=== PATIENT | male | born 1945 | race Caucasian/White ===

== ENCOUNTER 2016-08-01 08:53 | Emergency (ER) | payer MEDICARE ==
--- NOTE | 2016-08-01 10:43 | ED ORDER SUMMARY ---
..... Patient: TRAVIS STACY OrderSheet [facility] VisitID: [id number] [place] [address] 70y, M Registration Date/Time: 08/01/2016 ORDER SHEET Weight: 71.6 kg (stated) Allergies: No Known Drug Allergy GENERAL ORDERS: UA-Culture if indicated Urgent (09:12 08/01/2016 PHutchinson DO) (Ack 9:14 RKaruga) (10:14 KWilliams R.N.) Amylase Urgent (09:12 08/01/2016 PHutchinson DO) (Ack 9:14 RKaruga) (9:14 MWinterer R.N.) Lipase Urgent (09:08/01/2016 PHutchinson DO) (Ack 9:14 RKaruga) (9:14 MWinterer R.N.) PT with INR Urgent (09:12 08/01/2016 PHutchinson DO) (Ack 9:14 RKaruga) (9:14 MWinterer R.N.) Cardiac Panel Stat (09:12 08/01/2016 PHutchinson DO) (Ack 9:14 RKaruga) (9:14 MWinterer R.N.) NPO (09:12 08/01/2016 PHutchinson DO) (9:14 MWinterer R.N.) CT Abd/Pel w Cont (Yes) (N/A) Urgent (09:17 08/01/2016 PHutchinson DO) (Ack 9:28 RKaruga) (10:00 MWinterer R.N.) (Cancelled: Other11:32 PHutchinson DO) Urine Drug Screen Urgent (09:23 08/01/2016 PHutchinson DO) (Ack 9:27 RKaruga) (10:14 KWilliams R.N.) CT Abd/Pel wo Cont Urgent (11:32 08/01/2016 PHutchinson DO) (11:32 PHutchinson DO) (Cancelled: Other11:32 PHutchinson DO) CT Abd/Pel w Cont (Yes) (N/A) (already done) Urgent (11:33 08/01/2016 PHutchinson DO) (11:33 LTapper) MEDICATION ORDERS: IV FLUIDS: IV NS : initial bolus 500 mL (1000 mL/hr), then 250 mL/hr for X2 (NOW) (09:11 08/01/2016 [facility]) (Ack 9:14 MWinterer R.N.) (9:24 KWilliams R.N.) Zofran IV 4 mg (NOW) (09:12 08/01/2016 [facility]) (Ack 9:14 MWinterer R.N.) (9:32 MWinterer R.N.) Protonix IVP 40mg 40 mg (Mix in NS 10ml over 2min) (09:12 08/01/2016 [facility]) (Ack 9:14 MWinterer R.N.) (9:33 MWinterer R.N.) Dilaudid IV 1 mg (HIGH ALERT MEDICATION, NOW) (09:16 08/01/2016 [facility]) (9:33 MWinterer R.N.) Reglan IV 10 mg (NOW) (09:16 08/01/2016 [facility]) (9:32 MWinterer R.N.) Magnesium Sulfate IV 2 gm/50mL (NOW) (09:38 08/01/2016 [facility]) (Ack 9:40 MWinterer R.N.) (10:08 MWinterer R.N.) Dilaudid IV 0.5 mg (NOW) (11:10 08/01/2016 [facility]) (Ack 11:13 MWinterer R.N.) (11:26 MWinterer R.N.) ORDER SHEET NOTES: [Electronically signed by Jenny Finn R.N. (14:49 08/01/2016)] [Electronically signed by Maurizio Valadez DO (16:05 08/01/2016)] [Electronically locked/signed by Jenny Finn R.N. (14:49 08/01/2016)]
--- NOTE | 2016-08-01 10:43 | ED NURSING NOTES ---
Clinical Report - Nurses [facility] [address] [place] [address] 08/01/2016 8:55 Patient: TRAVIS STACY TRIAGE Acuity: LEVEL 3. Chief Complaint: ABDOMINAL PAIN and VOMITING. Alert. No acute distress. SEPSIS SCREEN: Sepsis Screen. Negative (no infection suspected/documented). --09: Jenny Finn R.N. 09:04 08/01/16. BP: 160/80. HR: 65. RR: 16. O2 saturation: 95%. Temp: 97.5 F (oral). Pain level now: 04/13. --09: Jenny Finn R.N. Weight: 71.6 kg stated. Height/Length: 71 inches Per Patient. BMI: 22. --09: Jenny Finn R.N. Medications Oxycodone-Acetaminophen Oral. --09: Jenny Finn R.N. Aspirin Childrens Oral. BuPROPion HBr Oral 75 MG, TID. BusPIRone HCl Oral 15 mg, 3x a day. Fish Oil Oral. Humira Subcutaneous (Kit 40 mg/0.8mL), 10 DAYS. KCL 10 meq, daily. Multivitamin Oral. Omeprazole Oral 20 mg, daily. Plaquenil Oral 200 mg. Pravastatin Sodium Oral 20 mg, daily. --09: Jenny Finn R.N. Vitamin c Oral. --09: Jenny Finn R.N. Medication/allergy information source: the patient. --09: Jenny Finn R.N. Allergies No Known Drug Allergy. --09: Jenny Finn R.N. History Arrived by private vehicle. Historian: patient. Accompanied by daughter. Primary physician (Antunez). Onset. (5 hours ago). Relates location as generalized across abdomen. Reports last BM was yesterday. Last oral intake by patient was this morning. Treatment [employer]: (oxydocone). SOCIAL HX: Current every day heavy tobacco smoker- 1 pack per day. Regular alcohol use. History of heavy drug use: marijuana. FALL RISK ASSESSMENT: Fall risk assessment completed. No fall risk identified. NUTRITIONAL RISK ASSESSMENT: The nutritional risk assessment revealed no deficiencies. FUNCTIONAL ASSESSMENT: Functional assessment: no impairments noted. LEARNING NEEDS ASSESSMENT: The learning needs assessment revealed no barriers. SKIN INTEGRITY ASSESSMENT: Skin integrity risk assessment completed. No skin integrity risk identified. --09: Jenny Finn R.N. PROBLEMS: Myofascial Strain. Hypokalemia. Gastroenteritis. Anxiety Reaction. Rheumatoid Arthritis. --09:06 Jenny Finn R.N. ADDITIONAL SURGERIES: The following entry was struck by Maurizio Valadez DO, 10:42 Reason - Struck from template <<STRICKEN ENTRY-- Hernia Repair. --10:42 Maurizio Valadez DO --END STRIKE>>. Assessment GENERAL / NEURO / PSYCH: Alert. Oriented X 4. Appears in no acute distress. Jazmine Coma Scale: 15- eyes open spontaneously (4); best verbal response- oriented x 4 (5); best motor response- obeys commands (6). Patient appears calm and cooperative. RESPIRATORY: Respirations not labored. CVS: Capillary refill less than 2 seconds. SKIN: Mucous membranes are pink. Skin is warm and dry. --09: Jenny Finn R.N. Interventions ID band on patient. To treatment room. --09: Jenny Finn R.N. PHYSICAL ASSESSMENT 09:08/01/16. Ambulatory to room. GENERAL / NEURO / PSYCH: Alert. Oriented X 4. Appears in no acute distress. HEENT: Mucous membranes are pink. RESPIRATORY: Respirations not labored. CVS: Capillary refill less than 2 seconds. GI / : Abdomen soft. SKIN: Skin is pale. Skin is warm and dry. --09:10 Jenny Finn R.N. NURSING PROGRESS NOTES 09:08/01/2016 Site #1 started via IV in the right antecubital space with an 18g angiocath, with aseptic technique and good blood return; one attempt. Blood drawn: rainbow set. Labeled in the presence of the patient and sent to the lab. Saline lock flushed with 10 mL saline. --09:10 Jenny Finn R.N. 09:08/01/16. Patient gowned. Two patient identifiers checked. Call light placed in reach. Side rails up x 1. Bed placed in lowest position. Brakes of bed on. Patient ready for evaluation- chart flagged and ED physician notified. --09:10 Jenny Finn R.N. 09:19 08/01/2016 Started bag #1 1000 mL IV Fluids IV NS (Saline); bolus of 500 mL over 30 minute(s) then at 250 mL/hr over 2 hour(s) via site #1. Allergies verified and confirmed 5 rights. IV patency established. IV site checked: no pain, redness, or swelling. IV flushed thoroughly pre- and post-medication administration. Completed per protocol. --09:24 Sarahi Ley R.N. 09:27 08/01/2016 Zofran (Ondansetron HCl) IVP 4 mg given over 1 minute(s) via site #1. Allergies verified and confirmed 5 rights. IV patency established. IV site checked: no pain, redness, or swelling. IV flushed thoroughly pre- and post-medication administration. IVP given by RN. --09:32 Jenny Finn R.N. 09:27 08/01/2016 Reglan (Metoclopramide HCl) IVP 10 mg given over 1 minute(s) via site #1. Allergies verified and confirmed 5 rights. IV patency established. IV site checked: no pain, redness, or swelling. IV flushed thoroughly pre- and post-medication administration. IVP given by RN. --09:32 Jenny Finn R.N. 09:08/01/2016 Dilaudid (HYDROmorphone HCl PF) IVP 1 mg given over 2 minute(s) via site #1. Allergies verified, confirmed 5 rights and sedative warning given to the patient. IV patency established. IV site checked: no pain, redness, or swelling. IV flushed thoroughly pre- and post-medication administration. IVP given by RN. --09:33 Jenny Finn R.N. 09:33 08/01/2016 PROTONIX (Pantoprazole Sodium) IVP 40 mg given over 3 minute(s) via site #1. Allergies verified and confirmed 5 rights. IV patency established. IV site checked: no pain, redness, or swelling. IV flushed thoroughly pre- and post-medication administration. IVP given by RN. --09:33 Jenny Finn R.N. 10:08 08/01/2016 Magnesium Sulfate (Magnesium Sulfate in D5W) IVP 2 gm given over 2 hour(s) via site #1. Allergies verified and confirmed 5 rights. IV patency established. IV site checked: no pain, redness, or swelling. IV flushed thoroughly pre- and post-medication administration. IVP given by RN. --10:08 Jenny Finn R.N. 10:15. Patient ID band checked for patient name and birthdate: patient confirmed. Instructions provided to collect clean catch urine and patient verbalized understanding. Clean catch urine collected with return of yellow-colored clear urine; odor is normal; sample sent to lab for urinalysis and culture. Specimen labeled in the presence of the patient. --10:42 Herlinda Bautista 10:45 08/01/16. BP: 148/72. HR: 72. RR: 12. O2 saturation: 97% on nasal cannula at 2 liters/minute. --10:46 Jenny Finn R.N. 11:26 08/01/2016 Dilaudid (HYDROmorphone HCl PF) IVP 0.5 mg given over 1 minute(s) via site #1. Allergies verified, confirmed 5 rights and sedative warning given to the patient. IV patency established. IV site checked: no pain, redness, or swelling. IV flushed thoroughly pre- and post-medication administration. IVP given by RN. --11:26 Jenny Finn R.N. 11:32 08/01/16. BP: 144/84. HR: 71. RR: 16. O2 saturation: 97% on nasal cannula at 2 liters/minute. --11:32 Jenny Finn R.N. 12:15 08/01/2016 Site #1 removed upon discharge. Catheter intact. Manual pressure and bandage applied. --14:49 Jenny Finn R.N. 12:15 08/01/2016 IV Fluids IV NS Discontinued: bag #1 infused upon discharge. Total amount infused: 1000 mL. IV patency established. IV site checked: no pain, redness, or swelling. IV flushed thoroughly. --14:48 Jenny Finn R.N. DISPOSITION / DISCHARGE Disposition: observation in Acute Care. Transported via stretcher by [employer]. Report was given to a nurse via a phone call. Report included patient's care, treatment, medications, reviewed medication reconcilliation, and condition (including any recent changes or anticipated changes). All questions were answered. Report was acknowledged and care was transferred. (KAL Giron). Bed obtained and ready (203B). Patient's personal items include: shirt, pants, coat, socks, shoes, glasses and jewelry; items were placed in belongings bag and transported with the patient. --11:50 Jenny Finn R.N. 11:47 08/01/16. BP: 145/80. HR: 71. RR: 18. O2 saturation: 98% on nasal cannula at 2 liters/minute. --11:50 Jenny Finn R.N. 12:13 08/01/16. The patient left the Emergency Department against medical advice; patient was accompanied by a family member. The patient appears to be alert, oriented x4, coherent and in no acute distress. The patient stated is leaving the ED (pt did not want to be admitted to the hospital.). Notified the ED physician of patient departure. Prior to leaving the ED, he was advised to stay for completion of treatment. He was informed of the risks of leaving and verbalized understanding of these risks. Patient signed form prior to leaving. He left the Emergency Department ambulatory and via private vehicle. --12:13 Jenny Finn R.N. Locked/Released at 08/01/2016 14:50 by Jenny Finn R.N.
--- NOTE | 2016-08-01 10:43 | DIAGNOSTIC IMAGING REPORT ---
PROCEDURE: CT ABD/PELVIS WITH CONTRAST CLINICAL INDICATION: Epigastric pain, initial encounter TECHNIQUE: 125 ml of Isovue 300 were injected intravenously and axial images were obtained of the entire abdomen and pelvis with sagittal and coronal reformations. COMPARISON: CT abdomen/pelvis 06/19/2015 FINDINGS: ABDOMEN: Lung base are clear. Heart size is normal. Stable hepatic cysts, largest 1 cm. Gallbladder, pancreas, spleen, adrenal glands and kidneys are unremarkable. Mild atherosclerosis. There are several a dilated loops of small bowel with transition point in the mid pelvis. PELVIS: Normal appendix. Moderate sigmoid diverticulosis. No pelvic mass, inflammatory changes or free fluid. Moderate degenerative changes of the spine. IMPRESSION: 1. Moderately dilated small bowel with transition point in the mid pelvis. This may be due to enteritis or partial small bowel obstruction. 2. Moderate sigmoid diverticulosis 3. Results discussed with Dr. Valadez All CT scans at this facility use dose modulation, iterative reconstruction, and/or weight-based dosing when appropriate to reduce radiation dose to as low as reasonably achievable.
--- NOTE | 2016-08-01 10:43 | ED CLINICAL REPORT ---
Clinical Report - Physicians/Mid Levels [facility] [address] [address] 08/01/2016 8:55 Patient: TRAVIS STACY Time Seen: 09:04. Arrived- By private vehicle. Historian- patient. HISTORY OF PRESENT ILLNESS Chief Complaint: ABDOMINAL PAIN. It is described as "pain". No radiation. It is described as generalized in location and located in the periumbilical area. This started today about 5 hours ago and is still present. It was gradual in onset and has been waxing/waning. At its maximum, severity described as severe. When seen in the E.D., severity described as severe. Modifying factors- worsened by movement. Relieved by rest. The patient has had nausea. He has had vomiting. The vomiting has occurred only once. No bilious emesis, blood-tinged emesis or frankly bloody emesis. (Last oral intake by patient was this morning.). Similar symptoms previously: Once, milder. Recent medical care: Not recently seen/assessed. REVIEW OF SYSTEMS No constipation, black stools, hematemesis, difficulty with urination or pain with urination. No urinary frequency, bloody stools, fever, headache or sore throat. No chest pain, difficulty breathing, cough, joint pain or skin rash. Last bowel movement: yesterday. The patient has had back pain. It has been similar to previous symptoms. He has had neck pain. It has been similar to previous episodes. All systems otherwise negative, except as recorded above. PAST HISTORY Primary physician: Dr Antunez ([facility] / [facility]). Type II diabetes mellitus treated with insulin. Hyperlipidemia. Hiatal hernia. Gastroesophageal reflux. Rheumatoid arthritis. Anxiety. Depression. Surgeries: Inguinal hernia repair. Medications: Vitamin c Oral. Aspirin Childrens Oral. BuPROPion HBr Oral 75 MG, TID. BusPIRone HCl Oral 15 mg, 3x a day. Fish Oil Oral. Humira Subcutaneous (Kit 40 mg/0.8mL), 10 DAYS. KCL 10 meq, daily. Multivitamin Oral. Omeprazole Oral 20 mg, daily. Plaquenil Oral 200 mg. Pravastatin Sodium Oral 20 mg, daily. Oxycodone-Acetaminophen Oral. Allergies: No Known Drug Allergy. SOCIAL HISTORY Smoker- current status unknown. Regular alcohol use. History of drug use: marijuana. FAMILY HISTORY Stroke in first-degree relative; cancer in first-degree relative. Father with RA. ADDITIONAL NOTES The nursing notes have been reviewed. PHYSICAL EXAM Vital Signs: 08/01/2016 09:04 BP: 160/80. HR: 65. RR: 16. O2 saturation: 95%. Temp: 97.5 F. Pain level now: 04/13. Appearance: Alert. Oriented X3. Patient in mild distress. Eyes: Eyes normal inspection. No scleral icterus or pale conjunctivae. ENT: Pharynx normal. No pharyngeal erythema or tonsillar exudate. The mucous membranes are not dry. Neck: Normal inspection. Neck supple. CVS: Normal heart rate and rhythm. Heart sounds normal. Pulses normal. Respiratory: No respiratory distress. Breath sounds normal. Abdomen: Soft. Moderate tenderness diffusely. No mass. Distention with tenderness to palpation. No rebound tenderness or guarding. Back: Normal inspection. No CVA tenderness. Skin: No cyanosis. Skin warm and dry. No pallor. Normal skin color. Normal skin turgor. Skin not cool on palpation. No diaphoresis. Extremities: Extremities exhibit normal ROM. No lower extremity edema. (hands with changes of rheumatoid arthritis / ulnar deviation at MCP joints and osteophytes). Neuro: Oriented X 3. No motor deficit. No sensory deficit. LABS, X-RAYS, AND EKG Abdominal CT: IMPRESSION: 1. Moderately dilated small bowel with transition point in the mid pelvis. This may be due to enteritis or partial small bowel obstruction. 2. Moderate sigmoid diverticulosis. Study type: abdomen and pelvis. Abdominal CT performed with IV contrast. The study was independently viewed by me, interpreted by the radiologist and discussed with the radiologist. Laboratory Tests: UA-Culture if indicated: (CONNIE: 08/01/2016 10:15) ( MsgRcvd 08/01/2016 10:24) IP Test Result Flag Units (Reference) URINE COLOR YELLOW URINE APPEARANCE CLEAR URINE GLUCOSE NEGATIVE (NEGATIVE) URINE BILIRUBIN NEGATIVE (NEGATIVE) URINE KETONE 1+ (NEGATIVE) URINE SPECIFIC GRAVITY 1.010 (1.010-1.030) URINE PH 5.5 (5.0-8.0) URINE PROTEIN NEGATIVE (NEGATIVE) URINE UROBILINOGEN 0.2 EU/dL (0.2-1.0) URINE NITRITE NEGATIVE (NEGATIVE) URINE BLOOD NEGATIVE (NEGATIVE) URINE LEUK ESTERASE NEGATIVE (NEGATIVE) CBC w Diff: (CONNIE: 08/01/2016 09:08) ( [facility] 08/01/2016 09:21) Final results Test Result Flag Units (Reference) WHITE BLOOD COUNT 8.4 K/uL (4.5-11.5) RED BLOOD COUNT 4.76 M/uL (4.50-5.90) HEMOGLOBIN 16.2 gm/dL (13.5-17.5) HEMATOCRIT 47.4 % (41.0-53.0) MEAN CELL VOLUME 100 fL (80-100) MEAN CORPUSCULAR HGB 34 pg (26-34) MEAN CORPUSCULAR HGB CONC 34 g/dL (31-37) RED CELL DISTRIBUTION WIDTH 13.1 % (11.6-14.8) PLATELET COUNT 227 K/uL (150-400) NEUTROPHIL % 76.1 H % (50-75) LYMPH % 13.5 L % (25-40) MONO % 8.0 % (3-14) EOSINOPHIL % 2.1 % (0-4) BASOPHIL % 0.3 % (0-2) PT with INR: (CONNIE: 08/01/2016 09:08) ( [facility] 08/01/2016 09:41) Final results Test Result Flag Units (Reference) INR 0.9 (0.8-1.2) Low Intensity Therapy: INR 1.5-2.0 PT range 18.5-23.1Mod.Intensity Therapy: INR 2.0-3.0 PT range 23.1-31.5High Intensity Therapy: INR 2.5-3.5 PT range 27.4-35.5High Intensity Therapy 2: INR 3.0-4.0 PT range 31.5-39.3 Urine Drug Screen: (CONNIE: 08/01/2016 10:15) ( [facility] 08/01/2016 10:51) Final results Test Result Flag Units (Reference) AMPHETAMINE/METHAMPHETAMINE NEGATIVE (NEGATIVE) BARBITURATE NEGATIVE (NEGATIVE) BENZODIAZEPINE NEGATIVE (NEGATIVE) CANNABINOID POSITIVE H (NEGATIVE) COCAINE NEGATIVE (NEGATIVE) ECSTASY POSITIVE H (NEGATIVE) METHADONE NEGATIVE (NEGATIVE) OPIATE POSITIVE H (NEGATIVE) The urine drug screen is a qualitative screening test fordrug overdose and abuse. All screen results should beconsidered as presumptive.Drugs screened for are as follows:BenzodiazepinesCocaineAmphetamines/MetamphetaminesTHC (Tetrahydrocannabinol)OpiatesBarbituratesEcstasyMethadonePositive results are unconfirmed. For confirmation, notifythe lab for the specimen to be sent to the reference lab.All confirmations must be performed by a differentmethodology.The ingestion of natural herbal and plant productscontaining Ephedra/Ephedra metabolites can produce in urineone or more substances capable of cross reacting withamphetamine/methamphetamine immunoassays. These testsprovide a preliminary result only. A more specificalternative chemical method must be used to obtain aconfirmed analytical result. CHEM 13 PANEL: (CONNIE: 08/01/2016 09:08) ( MsgRcvd 08/01/2016 09:33) Final results Test Result Flag Units (Reference) GLUCOSE 112 H mg/dL (70-110) BUN 14 mg/dL (7-18) CREATININE 0.9 mg/dL (0.6-1.3) Estimated GFR >60 mL/min Estimated GFR- >60 mL/min Note: Persistent reduction over 3 months in eGFR<60 mL/min/1.73 m2 defines CKD. Patients with eGFR values>=60 mL/min/1.73 m2 may also have CKD if evidence ofpersistent proteinuria. Additional information may be foundat www.kidney.org. SODIUM 143 mmol/L (136-145) POTASSIUM 3.4 L mmol/L (3.5-5.1) CHLORIDE 102 mmol/L (98-107) CARBON DIOXIDE 31 mmol/L (21-32) CALCIUM 9.4 mg/dL (8.5-10.1) TOTAL PROTEIN 8.4 H g/dL (6.4-8.2) ALBUMIN 4.2 g/dL (3.3-5.0) BILIRUBIN, TOTAL 0.7 mg/dL (0.0-1.0) ALKALINE PHOSPHATASE 77 U/L (46-116) AST (SGOT) 29 U/L (15-37) ALT (SGPT) 34 U/L (12-78) MAGNESIUM 1.5 L mg/dL (1.8-2.4) LIPASE 114 U/L (73-393) AMYLASE 39 U/L (25-115) CPK 86 U/L (24-260) TROPONIN I <0.05 ng/mL (0.00-1.5) TROPONIN REFERENCE RANGE:<0.1 NEGATIVE0.1-1.5 INDETERMINANT>1.5 POSITIVE . Pulse Oximetry: 08/01/2016 09:04 O2 saturation: 95%. (FIO2 - room air). Interpretation: normal. PROGRESS AND PROCEDURES Course of Care: Normal Saline 1 liter IVPB given. Zofran 4 mg IVP given. Protonix 40 mg IVP given. Reglan 10 mg IVP given. Mag Sulfate 2 gm IVP given. Dilaudid 1 mg + 0.5 mg IVP given. 08/01/2016 10:45 BP: 148/72. HR: 72. RR: 12. O2 saturation: 97%. 11:11 08/01/16. Patient is stable. Physical exam findings are improved. Symptoms better. 12:03 08/01/16. After long discussion with pt and daughter, pt is demanding to leave AMA. I have offered to help with every issue he has regarding his reasons for leaving - birds at home, ect - but he refuses this offer of help. Discussed case with patient's primary care provider, (Alba). Reviewed test results. Agreed upon treatment plan. Discussed case with hospitalist, (Jyoti call returned 11:00). Reviewed test results. Agreed upon treatment plan. Health care provider will see patient in hospital. Patient/family counseled. Old ED records reviewed. (PDMP with #90 oxycodone 5mg on 07/10/2016). Observation orders written. Disposition: Discharged. Condition: stable, guarded and improved. CLINICAL IMPRESSION Vomiting with nausea. Not intractable. Early, partial small bowel obstruction associated with intestinal bands / adhesions. Essential hypertension. Hypokalemia. Moderate hypomagnesemia. INSTRUCTIONS Drink plenty of fluids. (MANDATORY RECHECK TOMORROW). Warnings: Further evaluation is necessary. It is very important to follow up with a physician. SEDATIVE MEDICATION: You were given sedative medication during your visit. Do not drive or operate dangerous machinery. CONTROLLED SUBSTANCE WARNINGS. GENERAL WARNINGS: Return or contact your physician immediately if your condition worsens or changes unexpectedly, if not improving as expected, or if other problems arise. Prescription Medications: Zofran (orally disintegrating tablets) 4 mg: take 1-2 orally every 8 hours as needed for nausea and vomiting. Dispense five (5). No refill. Substitution is permissible. Follow-up: Follow up with your doctor tomorrow. Screening today revealed the patient's blood pressure to be in the hypertensive range. The patient should follow up with a primary care provider for blood pressure management. The patient was admitted and blood pressure will be managed during the admission. AMA warnings: Oriented to person, place, and time. Gives appropriate answers and rational explanation of refusal of care. No indication for involuntary commitment is present, signs of psychosis, auditory hallucinations, delusional thinking or suicidal ideations. No slurred speech, tangential thinking, visual hallucinations or homicidal ideations. Speaks coherently. Abstract thinking intact. Clinical Impression: the patient has the capacity to make decisions regarding the medical care offered. Relevant issues reviewed and discussed with the patient and family. The suspected diagnosis, based upon the initiated medical screening exam, is Small bowel obstruction and has been discussed with the patient and family. Acknowledges understanding of the reasons for recommendations regarding medical treatment, medical tests, procedures, admission to facility and further observation. The recommended medical care being refused is Hospital admission and has been discussed with the patient and family. The risks of refusing recommended care that were disclosed are and permanent mental impairment. REFUSAL OF CARE STATEMENT (patient to review and sign in discharge instructions): I have read this paragraph. I understand that a doctor at this hospital wants to give me certain medical care. The doctor explained that care to me, and I understand what that care is. The doctor also explained to me what could happen to me if I leave here without having that care, and I understand what he said. I know that I am welcome to return to this hospital at any time to receive the recommended care or any other care that I may need at any time, regardless of my ability to pay for such care. (Electronically signed by Maurizio Valadez DO 08/01/2016 16:05)
--- NOTE | 2016-08-01 10:43 | ED ORDER SUMMARY ---
..... Patient: TRAVIS STACY OrderSheet [facility] VisitID: [id number] [place] [address] 70y, M Registration Date/Time: 08/01/2016 ORDER SHEET Weight: 71.6 kg (stated) Allergies: No Known Drug Allergy GENERAL ORDERS: UA-Culture if indicated Urgent (09:12 08/01/2016 PHutchinson DO) (Ack 9:14 RKaruga) (10:14 KWilliams R.N.) Amylase Urgent (09:12 08/01/2016 PHutchinson DO) (Ack 9:14 RKaruga) (9:14 MWinterer R.N.) Lipase Urgent (09:08/01/2016 PHutchinson DO) (Ack 9:14 RKaruga) (9:14 MWinterer R.N.) PT with INR Urgent (09:12 08/01/2016 PHutchinson DO) (Ack 9:14 RKaruga) (9:14 MWinterer R.N.) Cardiac Panel Stat (09:12 08/01/2016 PHutchinson DO) (Ack 9:14 RKaruga) (9:14 MWinterer R.N.) NPO (09:12 08/01/2016 PHutchinson DO) (9:14 MWinterer R.N.) CT Abd/Pel w Cont (Yes) (N/A) Urgent (09:17 08/01/2016 PHutchinson DO) (Ack 9:28 RKaruga) (10:00 MWinterer R.N.) (Cancelled: Other11:32 PHutchinson DO) Urine Drug Screen Urgent (09:23 08/01/2016 PHutchinson DO) (Ack 9:27 RKaruga) (10:14 KWilliams R.N.) CT Abd/Pel wo Cont Urgent (11:32 08/01/2016 PHutchinson DO) (11:32 PHutchinson DO) (Cancelled: Other11:32 PHutchinson DO) CT Abd/Pel w Cont (Yes) (N/A) (already done) Urgent (11:33 08/01/2016 PHutchinson DO) (11:33 LTapper) MEDICATION ORDERS: IV FLUIDS: IV NS : initial bolus 500 mL (1000 mL/hr), then 250 mL/hr for X2 (NOW) (09:11 08/01/2016 [facility]) (Ack 9:14 MWinterer R.N.) (9:24 KWilliams R.N.) Zofran IV 4 mg (NOW) (09:12 08/01/2016 [facility]) (Ack 9:14 MWinterer R.N.) (9:32 MWinterer R.N.) Protonix IVP 40mg 40 mg (Mix in NS 10ml over 2min) (09:12 08/01/2016 [facility]) (Ack 9:14 MWinterer R.N.) (9:33 MWinterer R.N.) Dilaudid IV 1 mg (HIGH ALERT MEDICATION, NOW) (09:16 08/01/2016 [facility]) (9:33 MWinterer R.N.) Reglan IV 10 mg (NOW) (09:16 08/01/2016 [facility]) (9:32 MWinterer R.N.) Magnesium Sulfate IV 2 gm/50mL (NOW) (09:38 08/01/2016 [facility]) (Ack 9:40 MWinterer R.N.) (10:08 MWinterer R.N.) Dilaudid IV 0.5 mg (NOW) (11:10 08/01/2016 [facility]) (Ack 11:13 MWinterer R.N.) (11:26 MWinterer R.N.) ORDER SHEET NOTES: [Electronically signed by Jenny Finn R.N. (14:49 08/01/2016)] [Electronically signed by Maurizio Valadez DO (16:05 08/01/2016)] [Electronically locked/signed by Jenny Finn R.N. (14:49 08/01/2016)]
--- NOTE | 2016-08-01 16:05 | ED MAR SUMMARY ---
..... Medication Administration Record [facility] [address] [place] [address] Patient: TRAVIS STACY Visit ID: [id number] 70y, M Weight: 71.6 kg Height/Length: 71 in BMI: 22 ALLERGIES: No Known Drug Allergy Start 09:19 08/01/2016 Sarahi Ley R.N., Stop 12:15 08/01/2016 Jenny Finn R.N. Medication Administered: IV NS (SALINE), Dose: IV Fluids over 2 hour(s), Rate: 250 mL/hr, Bolus: 500 mL over 30 minute(s), Dispensed: 1000 mL bag, Site: #1 right AC. Medication Ordered: IV NS : initial bolus 500 mL (1000 mL/hr), then 250 mL/hr for X2 (NOW). Given 09:08/01/2016 Jenny Finn R.N. Medication Administered: ZOFRAN [IVP] (ONDANSETRON HCL), Dose: 4 mg IVP over 1 minute(s), Site: #1 right AC. Medication Ordered: Zofran IV 4 mg (NOW). Given 09:08/01/2016 Jenny Finn R.N. Medication Administered: REGLAN [IVP] (METOCLOPRAMIDE HCL), Dose: 10 mg IVP over 1 minute(s), Site: #1 right AC. Medication Ordered: Reglan IV 10 mg (NOW). Given 09:08/01/2016 Jenny Finn R.N. Medication Administered: DILAUDID [IVP] (HYDROMORPHONE HCL PF), Dose: 1 mg IVP over 2 minute(s), Site: #1 right AC. Medication Ordered: Dilaudid IV 1 mg (HIGH ALERT MEDICATION, NOW). Given 09:08/01/2016 Jenny Finn R.N. Medication Administered: PROTONIX [IVP] (PANTOPRAZOLE SODIUM), Dose: 40 mg IVP over 3 minute(s), Site: #1 right AC. Medication Ordered: Protonix IVP 40mg 40 mg (Mix in NS 10ml over 2min). Given 10:08/01/2016 Jenny Finn R.N. Medication Administered: MAGNESIUM SULFATE [IVP] (MAGNESIUM SULFATE IN D5W), Dose: 2 gm IVP over 2 hour(s), Site: #1 right AC. Medication Ordered: Magnesium Sulfate IV 2 gm/50mL (NOW). Given 11:26 08/01/2016 Jenny Finn R.N. Medication Administered: DILAUDID [IVP] (HYDROMORPHONE HCL PF), Dose: 0.5 mg IVP over 1 minute(s), Site: #1 right AC. Medication Ordered: Dilaudid IV 0.5 mg (NOW).
--- NOTE | 2016-08-01 16:05 | ED MED RECONCILIATION SUMMARY ---
Patient: TRAVIS STACY Medication Reconciliation Report [facility] VisitID: [id number] [place] [address] 70y, M Registration Date/Time: 08/01/2016 Weight: 71.6 kg Height/Length: 71 in. BMI: 22.0 ALLERGIES: No Known Drug Allergy The patient's Home Medications are listed below: THE FOLLOWING MEDICATIONS NEED TO BE RECONCILED: Aspirin Childrens Oral BuPROPion HBr Oral 75 MG, TID BusPIRone HCl Oral 15 mg, 3x a day Fish Oil Oral Humira Subcutaneous (40 mg/0.8mL), 10 DAYS KCL 10 meq, daily Multivitamin Oral Omeprazole Oral 20 mg, daily Oxycodone-Acetaminophen Oral Plaquenil Oral 200 mg Pravastatin Sodium Oral 20 mg, daily Vitamin c Oral The source(s) of the original Home Medication information: patient The following Medications were given to the patient in the Emergency Department: IV NS IV Fluids bolus 500 mL over 30 minute(s), then 250 mL/hr, administered: 08/01/2016 9:19:00 AM Zofran [IVP] IVP 4 mg, administered: 08/01/2016 9:27:00 AM Reglan [IVP] IVP 10 mg, administered: 08/01/2016 9:27:00 AM Dilaudid [IVP] IVP 1 mg, administered: 08/01/2016 9:28:00 AM PROTONIX [IVP] IVP 40 mg, administered: 08/01/2016 9:33:00 AM Magnesium Sulfate [IVP] IVP 2 gm, administered: 08/01/2016 10:08:00 AM Dilaudid [IVP] IVP 0.5 mg, administered: 08/01/2016 11:26:00 AM The following Medications were prescribed to the patient: Zofran (orally disintegrating tablets) 4 mg: take 1-2 orally every 8 hours as needed for nausea and vomiting. Dispense five (5). No refill. Substitution is permissible. -- Maurizio Valadez DO
--- NOTE | 2016-08-01 16:05 | ED MED RECONCILIATION SUMMARY ---
Patient: TRAVIS STACY Medication Reconciliation Report [facility] VisitID: [id number] [place] [address] 70y, M Registration Date/Time: 08/01/2016 Weight: 71.6 kg Height/Length: 71 in. BMI: 22.0 ALLERGIES: No Known Drug Allergy The patient's Home Medications are listed below: THE FOLLOWING MEDICATIONS NEED TO BE RECONCILED: Aspirin Childrens Oral BuPROPion HBr Oral 75 MG, TID BusPIRone HCl Oral 15 mg, 3x a day Fish Oil Oral Humira Subcutaneous (40 mg/0.8mL), 10 DAYS KCL 10 meq, daily Multivitamin Oral Omeprazole Oral 20 mg, daily Oxycodone-Acetaminophen Oral Plaquenil Oral 200 mg Pravastatin Sodium Oral 20 mg, daily Vitamin c Oral The source(s) of the original Home Medication information: patient The following Medications were given to the patient in the Emergency Department: IV NS IV Fluids bolus 500 mL over 30 minute(s), then 250 mL/hr, administered: 08/01/2016 9:19:00 AM Zofran [IVP] IVP 4 mg, administered: 08/01/2016 9:27:00 AM Reglan [IVP] IVP 10 mg, administered: 08/01/2016 9:27:00 AM Dilaudid [IVP] IVP 1 mg, administered: 08/01/2016 9:28:00 AM PROTONIX [IVP] IVP 40 mg, administered: 08/01/2016 9:33:00 AM Magnesium Sulfate [IVP] IVP 2 gm, administered: 08/01/2016 10:08:00 AM Dilaudid [IVP] IVP 0.5 mg, administered: 08/01/2016 11:26:00 AM The following Medications were prescribed to the patient: Zofran (orally disintegrating tablets) 4 mg: take 1-2 orally every 8 hours as needed for nausea and vomiting. Dispense five (5). No refill. Substitution is permissible. -- Maurizio Valadez DO
--- NOTE | 2016-08-01 16:05 | ED MAR SUMMARY ---
..... Medication Administration Record [facility] [address] [place] [address] Patient: TRAVIS STACY Visit ID: [id number] 70y, M Weight: 71.6 kg Height/Length: 71 in BMI: 22 ALLERGIES: No Known Drug Allergy Start 09:19 08/01/2016 Sarahi Ley R.N., Stop 12:15 08/01/2016 Jenny Finn R.N. Medication Administered: IV NS (SALINE), Dose: IV Fluids over 2 hour(s), Rate: 250 mL/hr, Bolus: 500 mL over 30 minute(s), Dispensed: 1000 mL bag, Site: #1 right AC. Medication Ordered: IV NS : initial bolus 500 mL (1000 mL/hr), then 250 mL/hr for X2 (NOW). Given 09:08/01/2016 Jenny Finn R.N. Medication Administered: ZOFRAN [IVP] (ONDANSETRON HCL), Dose: 4 mg IVP over 1 minute(s), Site: #1 right AC. Medication Ordered: Zofran IV 4 mg (NOW). Given 09:08/01/2016 Jenny Finn R.N. Medication Administered: REGLAN [IVP] (METOCLOPRAMIDE HCL), Dose: 10 mg IVP over 1 minute(s), Site: #1 right AC. Medication Ordered: Reglan IV 10 mg (NOW). Given 09:08/01/2016 Jenny Finn R.N. Medication Administered: DILAUDID [IVP] (HYDROMORPHONE HCL PF), Dose: 1 mg IVP over 2 minute(s), Site: #1 right AC. Medication Ordered: Dilaudid IV 1 mg (HIGH ALERT MEDICATION, NOW). Given 09:08/01/2016 Jenny Finn R.N. Medication Administered: PROTONIX [IVP] (PANTOPRAZOLE SODIUM), Dose: 40 mg IVP over 3 minute(s), Site: #1 right AC. Medication Ordered: Protonix IVP 40mg 40 mg (Mix in NS 10ml over 2min). Given 10:08/01/2016 Jenny Finn R.N. Medication Administered: MAGNESIUM SULFATE [IVP] (MAGNESIUM SULFATE IN D5W), Dose: 2 gm IVP over 2 hour(s), Site: #1 right AC. Medication Ordered: Magnesium Sulfate IV 2 gm/50mL (NOW). Given 11:26 08/01/2016 Jenny Finn R.N. Medication Administered: DILAUDID [IVP] (HYDROMORPHONE HCL PF), Dose: 0.5 mg IVP over 1 minute(s), Site: #1 right AC. Medication Ordered: Dilaudid IV 0.5 mg (NOW).
--- NOTE | 2016-08-01 16:05 | ED DISCHARGE INSTRUCTIONS ---
Patient: TRAVIS STACY General Instructions [facility] VisitID: [id number] [place] [address] 70y, M Registration Date/Time: 08/01/2016 Vomiting with nausea. Not intractable. Early, partial small bowel obstruction associated with intestinal bands / adhesions. Essential hypertension. Hypokalemia. Moderate hypomagnesemia. INSTRUCTIONS Drink plenty of fluids. (MANDATORY RECHECK TOMORROW). Warnings: Further evaluation is necessary. It is very important to follow up with a physician. SEDATIVE MEDICATION: You were given sedative medication during your visit. Do not drive or operate dangerous machinery. CONTROLLED SUBSTANCE WARNINGS. GENERAL WARNINGS: Return or contact your physician immediately if your condition worsens or changes unexpectedly, if not improving as expected, or if other problems arise. Prescription Medications: Zofran (orally disintegrating tablets) 4 mg: take 1-2 orally every 8 hours as needed for nausea and vomiting. Dispense five (5). No refill. Substitution is permissible. Follow-up: Follow up with your doctor tomorrow. Screening today revealed the patient's blood pressure to be in the hypertensive range. The patient should follow up with a primary care provider for blood pressure management. The patient was admitted and blood pressure will be managed during the admission. AMA warnings: Oriented to person, place, and time. Gives appropriate answers and rational explanation of refusal of care. No indication for involuntary commitment is present, signs of psychosis, auditory hallucinations, delusional thinking or suicidal ideations. No slurred speech, tangential thinking, visual hallucinations or homicidal ideations. Speaks coherently. Abstract thinking intact. Clinical Impression: the patient has the capacity to make decisions regarding the medical care offered. Relevant issues reviewed and discussed with the patient and family. The suspected diagnosis, based upon the initiated medical screening exam, is Small bowel obstruction and has been discussed with the patient and family. Acknowledges understanding of the reasons for recommendations regarding medical treatment, medical tests, procedures, admission to facility and further observation. The recommended medical care being refused is Hospital admission and has been discussed with the patient and family. The risks of refusing recommended care that were disclosed are and permanent mental impairment. REFUSAL OF CARE STATEMENT (patient to review and sign in discharge instructions): I have read this paragraph. I understand that a doctor at this hospital wants to give me certain medical care. The doctor explained that care to me, and I understand what that care is. The doctor also explained to me what could happen to me if I leave here without having that care, and I understand what he said. I know that I am welcome to return to this hospital at any time to receive the recommended care or any other care that I may need at any time, regardless of my ability to pay for such care. ADDITIONAL INFORMATION High Blood Pressure -- To Be Confirmed [No Tx] Your blood pressure was higher today than normal. Sometimes anxiety or pain can cause a temporary rise in blood pressure that later returns to normal. If your blood pressure is high on one measurement, this does not mean that you have hypertension (a chronic illness). However, you must have your blood pressure measured again within the next few days to find out if its still high. A normal blood pressure is 120/80 or less. The first (top) number is the "systolic" pressure. The second (bottom) number is the "diastolic" pressure. Hypertension exists when either the top number is 140 or higher, OR the bottom number is 90 or higher on repeated measurements. Blood pressure in the range of 120-140 (systolic) or 80-89 (diastolic) is considered "pre-hypertension". This means your are at risk for getting hypertension. You should have regular blood pressure checks to be sure your blood pressure is not rising. Home Care: Measure your blood pressure on 3 different days and write down the results. This can be done at your doctor's office or this facility. Some pharmacies and grocery stores offer automated blood pressure machines for your use. Follow Up: If your blood pressure is "high" (over 120/80) on 2 out of 3 days, you will need to follow up with your doctor for further evaluation and treatment. DO NOT PUT THIS OFF! Untreated high blood pressure increases the risk for heart attack, also known as acute myocardial infarction, or AMI, and stroke. It is a treatable condition. Get Prompt Medical Attention if any of the following occur: Chest pain or shortness of breath Severe headache Throbbing or rushing sound in the ears Nosebleed Sudden severe abdominal pain Extreme drowsiness, confusion or fainting Dizziness or vertigo (dizziness with spinning sensation) Weakness of an arm or leg or one side of the face Difficulty with speech or vision Ondansetron Oral disintegrating tablet What is this medicine? ONDANSETRON (on EDIE se kam) is used to treat nausea and vomiting caused by chemotherapy. It is also used to prevent or treat nausea and vomiting after surgery. How should I use this medicine? These tablets are made to dissolve in the mouth. Do not try to push the tablet through the foil backing. With dry hands, peel away the foil backing and gently remove the tablet. Place the tablet in the mouth and allow it to dissolve, then swallow. While you may take these tablets with water, it is not necessary to do so. Talk to your air purifier servicer regarding the use of this medicine in children. Special care may be needed. What side effects may I notice from receiving this medicine? Side effects that you should report to your doctor or health career development director as soon as possible: allergic reactions like skin rash, itching or hives, swelling of the face, lips, or tongue breathing problems dizziness fast or irregular heartbeat feeling faint or lightheaded, falls fever and chills swelling of the hands and feet tightness in the chest Side effects that usually do not require medical attention (report to your doctor or health career development director if they continue or are bothersome): constipation or diarrhea headache What may interact with this medicine? Do not take this medicine with any of the following medications: -apomorphine -cisapride -dofetilide -dronedarone -pimozide -thioridazine -ziprasidone This medicine may also interact with the following medications: -carbamazepine -phenytoin -rifampicin -tramadol -other medicines that prolong the QT interval (cause an abnormal heart rhythm) What if I miss a dose? If you miss a dose, take it as soon as you can. If it is almost time for your next dose, take only that dose. Do not take double or extra doses. Where should I keep my medicine? Keep out of the reach of children. Store between 2 and 30 degrees C (36 and 86 degrees F). Throw away any unused medicine after the expiration date. What should I tell my health care provider before I take this medicine? They need to know if you have any of these conditions: heart disease history of irregular heartbeat liver disease low levels of magnesium or potassium in the blood an unusual or allergic reaction to ondansetron, granisetron, other medicines, foods, dyes, or preservatives or trying to get breast-feeding What should I watch for while using this medicine? Check with your doctor or health career development director as soon as you can if you have any sign of an allergic reaction. You have been given the following additional information: Hypertension, To Be Confirmed Ondansetron Oral disintegrating tablet (Electronically signed by Maurizio Valadez DO 08/01/2016 16:05)
== END 2016-08-01 12:20 | disposition left against medical advice (07) ==
LOC: ED SRH 08:53 → TRANS SRH 11:04 → ED SRH 11:04
DX: R11.2 Nausea with vomiting, unspecified (principal); K56.5 Intestinal adhesions [bands] with obstruction (postinfection); I10 Essential (primary) hypertension; E87.6 Hypokalemia; E83.42 Hypomagnesemia; Z79.899 Other long term (current) drug therapy; E11.9 Type 2 diabetes mellitus without complications; Z79.4 Long term (current) use of insulin; K21.9 Gastro-esophageal reflux disease without esophagitis
CPT/HCPCS: 90004; 90100; 90616; 92235; 92530; 92610; 92720; 92760; 92761; 92762; 92763; 92764; 92765; 92766; 92767; 94060; 95059

== ENCOUNTER 2016-12-02 12:29 | Inpatient (IN) | payer MEDICARE ==
[~2016-12-02] VITALS: Ht 182.9 cm; Wt 70.2 kg
--- NOTE | 2016-12-02 14:54 | DIAGNOSTIC IMAGING REPORT ---
PROCEDURE: XR CHEST 1 VIEW INDICATION: COUGH TECHNIQUE: Portable AP view 02:39 p.m. COMPARISON: Chest x-ray 06/19/2015. FINDINGS: New moderate retrocardiac infiltrate. Right lung is clear. Heart and mediastinum are normal. Thorax is normal. IMPRESSION: 1. Retrocardiac pneumonia
--- NOTE | 2016-12-02 20:34 | ED CLINICAL REPORT ---
Clinical Report - Physicians/Mid Levels [facility] [address] [place] [address] 12/02/2016 12:31 Patient: TRAVIS STACY Time Seen: 12:40. Arrived- By private vehicle. Historian- patient. HISTORY OF PRESENT ILLNESS Chief Complaint: DYSPNEA and cough, in pain. This started several days ago and is still present. The dyspnea is described as moderate and is worsened by cough and is improved by rest. The patient has had a cough and dyspnea on exertion. No sputum production, fever, sweating episodes, wheezing or chills. No chest pain or discomfort, calf pain, foot swelling or orthopnea. No anxiety, dizziness, tingling, numbness or palpitations. (patient states that he ran out of his pain meds about 4 days ago. He has also been coughing for about the same period of time. Family states that they have noticed that he has seemed a little more confused than usual, or disoriented. They cite as an example that patient was trying to use the remote control several days ago and seemed to be having trouble figuring out how to use it. This is the first time that they had noticed that he was like that. They've also noticed that his skin seems pale.). Similar symptoms previously: Occasionally. Recent medical care: Not recently seen/assessed. REVIEW OF SYSTEMS The patient has not had weight loss. No muscle aches, eye irritation, sore throat, nasal discharge or sinus drainage. No nausea, vomiting, abdominal pain, diarrhea or black stools. No bloody stools, headache, fainting episodes, blurred vision or difficulty with urination. No excessive urination, skin rash, enlarged lymph nodes or joint pain. All systems otherwise negative, except as recorded above. PAST HISTORY Problems: Bowel Obstruction. Hypertension. Arthritis. Hyperlipidemia. Gastroesophageal Reflux. Depression. Diabetes Mellitus. Hiatal Hernia. Anxiety Reaction. Rheumatoid Arthritis. Additional Surgeries: Inguinal Hernia Repair. Medications: Aspirin Childrens Oral. BuPROPion HBr Oral 75 MG, TID. BusPIRone HCl Oral 15 mg, 3x a day. Fish Oil Oral. Humira Subcutaneous (Kit 40 mg/0.8mL), 10 DAYS. KCL 10 meq, daily. Multivitamin Oral. Omeprazole Oral 20 mg, daily. Oxycodone-Acetaminophen Oral. Plaquenil Oral 200 mg. Pravastatin Sodium Oral 20 mg, daily. Vitamin c Oral. Allergies: No Known Drug Allergy. SOCIAL HISTORY Smoker- current status unknown. Alcohol use. History of drug use: marijuana. ADDITIONAL NOTES The nursing notes have been reviewed. PHYSICAL EXAM Vital Signs: 12/02/2016 12:38 BP: 112/87. HR: 88. RR: 18. O2 saturation: 98%. Temp: 97.8 F. Pain level now: 03/14. Have been reviewed. Appearance: Alert. No acute distress. (Patient is thin and pale, but does answer questions appropriately and appears in no apparent distress.). Eyes: Pupils equal, round and reactive to light. Eyes normal inspection. ENT: Nose normal. Neck: Normal inspection. Neck supple. CVS: Normal heart rate and rhythm. Heart sounds normal. Pulses normal. Respiratory: No respiratory distress. Breath sounds normal. Abdomen: Soft and nontender. Back: Normal inspection. Skin: Skin warm and dry. Normal skin color. No rash. Normal skin turgor. Extremities: Extremities exhibit normal ROM. No lower extremity edema. Neuro: (Patient answers questions appropriately, and is alert and brisk in his responses. He has no focal motor or sensory deficits.). LABS, X-RAYS, AND EKG EKG: EKG time: (1249). Rate: 102. Tachycardia. Sinus tachycardia. Left atrial enlargement. Normal CARRIE. Decreased QRS voltage. Normal axis. Normal QT and QTc. Non-specific ST segment / T wave abnormalities. Prior EKG unavailable. The study has been interpreted contemporaneously by me. The study has been independently viewed by me. Artifact present. Rhythm Strip #1: Time: (15:42). Rate= 96. Normal sinus rhythm. Regular rhythm. Narrow QRS complexes. No ectopy. Conduction normal. Normal ST segments and T waves. The study was interpreted by me. Chest X-ray: Small infiltrate in the left lower lobe. Consistent with pneumonia. Normal heart size. Mediastinum normal. Great vessels normal. Soft tissues normal. No fracture. No bony lesion present. Views: AP (portable). Technique: good. The X-rays were independently viewed by me, interpreted by the radiologist and contemporaneously by me and discussed with the radiologist. A comparison with prior films reveals that the findings are new. Laboratory Tests: UA-Culture if indicated: (CONNIE: 12/02/2016 16:35) ( [facility] [place] 12/02/2016 17:23) Final results Test Result Flag Units (Reference) URINE COLOR YELLOW URINE APPEARANCE CLEAR URINE GLUCOSE NEGATIVE (NEGATIVE) URINE BILIRUBIN 1+ (NEGATIVE) URINE BILIRUBIN ICTOTEST POSITIVE (NEGATIVE) URINE KETONE NEGATIVE (NEGATIVE) URINE SPECIFIC GRAVITY 1.020 (1.010-1.030) URINE PH 5.5 (5.0-8.0) URINE PROTEIN 2+ (NEGATIVE) URINE UROBILINOGEN 1.0 EU/dL (0.2-1.0) URINE NITRITE NEGATIVE (NEGATIVE) URINE BLOOD NEGATIVE (NEGATIVE) URINE LEUK ESTERASE NEGATIVE (NEGATIVE) URINE RBC 0-1 rbc/hpf (0-1) URINE WBC 0-1 wbc/hpf (0-1) URINE EPITHELIAL CELLS 1-3 EPI/hpf (0-5) URINE BACTERIA NONE SEEN (NONE SEEN) URINE COMMENT CULT NOT INDICATED 0-1 HYALINE CASTSURINE CULTURES ARE SET-UP BASED ON THE FOLLOWING CRITERIA:POSITIVE NITRITEPOSITIVE LEUKOCYTE ESTERASEGREATER THAN 10 WHITE BLOOD CELLSMODERATE (2+) OR GREATER BACTERIA CBC w Diff: (CONNIE: 12/02/2016 13:10) ( [facility] 12/02/2016 14:11) Final results Test Result Flag Units (Reference) WHITE BLOOD COUNT 7.6 K/uL (4.5-11.5) RED BLOOD COUNT 4.80 M/uL (4.50-5.90) HEMOGLOBIN 14.7 gm/dL (13.5-17.5) HEMATOCRIT 45.8 % (41.0-53.0) MEAN CELL VOLUME 96 fL (80-100) MEAN CORPUSCULAR HGB 31 pg (26-34) MEAN CORPUSCULAR HGB CONC 32 g/dL (31-37) RED CELL DISTRIBUTION WIDTH 15.6 H % (11.6-14.8) PLATELET COUNT 155 K/uL (150-400) NEUTROPHIL % 62.8 % (50-75) LYMPH % 20.9 L % (25-40) MONO % 13.6 % (3-14) EOSINOPHIL % 1.7 % (0-4) BASOPHIL % 1.0 % (0-2) PT with INR: (CONNIE: 12/02/2016 13:10) ( [facility] 12/02/2016 14:09) Final results Test Result Flag Units (Reference) INR 1.3 H (0.8-1.2) Low Intensity Therapy: INR 1.5-2.0 PT range 18.5-23.1Mod.Intensity Therapy: INR 2.0-3.0 PT range 23.1-31.5High Intensity Therapy: INR 2.5-3.5 PT range 27.4-35.5High Intensity Therapy 2: INR 3.0-4.0 PT range 31.5-39.3 CMP: (CONNIE: 12/02/2016 13:10) ( [facility] [place] 12/02/2016 14:05) Final results Test Result Flag Units (Reference) GLUCOSE 111 H mg/dL (70-110) BUN 12 mg/dL (7-18) CREATININE 1.1 mg/dL (0.6-1.3) Estimated GFR >60 mL/min Estimated GFR- >60 mL/min Note: Persistent reduction over 3 months in eGFR<60 mL/min/1.73 m2 defines CKD. Patients with eGFR values>=60 mL/min/1.73 m2 may also have CKD if evidence ofpersistent proteinuria. Additional information may be foundat www.kidney.org. SODIUM 140 mmol/L (136-145) POTASSIUM 3.3 L mmol/L (3.5-5.1) CHLORIDE 101 mmol/L (98-107) CARBON DIOXIDE 31 mmol/L (21-32) CALCIUM 8.3 L mg/dL (8.5-10.1) TOTAL PROTEIN 6.8 g/dL (6.4-8.2) ALBUMIN 2.5 L g/dL (3.3-5.0) BILIRUBIN, TOTAL 3.0 H mg/dL (0.0-1.0) ALKALINE PHOSPHATASE 91 U/L (46-116) AST (SGOT) 39 H U/L (15-37) ALT (SGPT) 59 U/L (12-78) LIPASE 109 U/L (73-393) AMYLASE 25 U/L (25-115) . Pulse Oximetry: 12/02/2016 12:38 O2 saturation: 98%. (FIO2 - room air). Interpretation: normal. PROGRESS AND PROCEDURES Course of Care: The patient was worked up for his symptoms with labs EKG and chest x-ray. Chest x-ray did show a retrocardiac pneumonia. Labs showed a low potassium, but normal H/H. Patient was treated with IV supplemental potassium, as well as antibiotics. The patient's family stated that they did not feel they could take him home in his current condition. I did arrange for him to be admitted for observation. Discussed case with hospitalist. Reviewed test results and need for additional work-up. Agreed upon treatment plan and decision to admit. Health care provider will see patient in hospital. Patient and family counseled in person regarding the patient's condition, test results, diagnosis and need for admission. Concerns were addressed. Old medical records reviewed. Disposition: Admitted to Acute Care. Condition: stable. CLINICAL IMPRESSION Acute mental status change with confusion. Bacterial pneumonia. Vital signs recorded and reviewed; empiric antibiotics given in the ED. No hypoxemia, respiratory failure or sepsis. (Electronically signed by Roxane Hale MD 12/10/2016 10:37)
--- NOTE | 2016-12-02 20:34 | ED ORDER SUMMARY ---
..... Patient: TRAVIS STACY OrderSheet [facility] VisitID: [id number] [address] [place] [address] 70y, M Registration Date/Time: 12/02/2016 ORDER SHEET Weight: 70.3 kg (stated) Allergies: No Known Drug Allergy GENERAL ORDERS: CBC w Diff Urgent (13:48 12/02/2016 EHassan R.N. per protocol) (Ack 13:50 LNations ER Tech1) (13:52 EHassan R.N.) CMP Urgent (13:48 12/02/2016 EHassan R.N. per protocol) (Ack 13:50 LNations ER Tech1) (13:52 EHassan R.N.) Amylase Urgent (13:48 12/02/2016 EHassan R.N. per protocol) (Ack 13:50 LNations ER Tech1) (13:52 EHassan R.N.) Lipase Urgent (13:48 12/02/2016 EHassan R.N. per protocol) (Ack 13:50 LNations ER Tech1) (13:52 EHassan R.N.) PT with INR Urgent (13:48 12/02/2016 EHassan R.N. per protocol) (Ack 13:50 LNations ER Tech1) (13:52 EHassan R.N.) Chest 1V Urgent (14:28 12/02/2016 Sterling JEAN-BAPTISTE) (Ack 14:33 IJurca ER Tech1) (14:37 EHassan R.N.) Salon Professional (Continuous) (14:28 12/02/2016 Sterling JEAN-BAPTISTE) (Ack 14:33 IJurca ER Tech1) (14:37 EHassan R.N.) Pulse oximeter (14:28 12/02/2016 Sterling JEAN-BAPTISTE) (Ack 14:33 IJurca ER Tech1) (14:37 EHassan R.N.) UA-Culture if indicated Urgent (14:29 12/02/2016 Sterling JEAN-BAPTISTE) (Ack 14:33 IJurca ER Tech1) (16:42 LSullivan R.N.) Blood Culture (No) (N/A) Urgent (15:39 12/02/2016 Sterling JEAN-BAPTISTE) (Ack 15:42 LNations ER Tech1) (15:50 MCook R.N.) MEDICATION ORDERS: Zithromax PO 500 mg (NOW) (15:38 12/02/2016 Sterilng JEAN-BAPTISTE) (16:02 LSullivan R.N.) IV FLUIDS: Dilaudid IV 2 mg (HIGH ALERT MEDICATION, NOW) (14:28 12/02/2016 Sterling JEAN-BAPTISTE) (14:37 EHassan R.N.) IV NS : initial bolus 1000 mL (1000 mL/hr), then 200 mL/hr (NOW) (14:28 12/02/2016 Sterling JEAN-BAPTISTE) (14:37 EHassan R.N.) Dilaudid IV 2 mg (HIGH ALERT MEDICATION, NOW) (14:59 12/02/2016 Sterling JEAN-BAPTISTE) (15:13 EHassan R.N.) KCl IV 20 meq/100mL (over 1 hr) (15:38 12/02/2016 Sterling JEAN-BAPTISTE) (16:13 LSullivan R.N.) Rocephin IV 2 gm/50mL (NOW) (15:38 12/02/2016 Sterling JEAN-BAPTISTE) (16:02 LSullivan R.N.) IV NS : initial bolus 1000 mL (1000 mL/hr), then 1000 mL/hr (NOW) (16:48 12/02/2016 Sterling JEAN-BAPTISTE) (16:51 LSullivan R.N.) Dilaudid IV 2 mg (HIGH ALERT MEDICATION, NOW) (18:27 12/02/2016 Sterling JEAN-BAPTISTE) (Cancelled: Other18:40 Sterling JEAN-BAPTISTE) ORDER SHEET NOTES: [Electronically signed by Martita Humphreys R.N. (20:58 12/02/2016)] [Electronically signed by Roxane Hale MD (10:37 12/10/2016)] [Electronically locked/signed by Martita Humphreys R.N. (20:58 12/02/2016)]
--- NOTE | 2016-12-02 20:34 | ED ORDER SUMMARY ---
..... Patient: TRAVIS STACY OrderSheet [facility] VisitID: [id number] [address] [place] [address] 70y, M Registration Date/Time: 12/02/2016 ORDER SHEET Weight: 70.3 kg (stated) Allergies: No Known Drug Allergy GENERAL ORDERS: CBC w Diff Urgent (13:48 12/02/2016 EHassan R.N. per protocol) (Ack 13:50 LNations ER Tech1) (13:52 EHassan R.N.) CMP Urgent (13:48 12/02/2016 EHassan R.N. per protocol) (Ack 13:50 LNations ER Tech1) (13:52 EHassan R.N.) Amylase Urgent (13:48 12/02/2016 EHassan R.N. per protocol) (Ack 13:50 LNations ER Tech1) (13:52 EHassan R.N.) Lipase Urgent (13:48 12/02/2016 EHassan R.N. per protocol) (Ack 13:50 LNations ER Tech1) (13:52 EHassan R.N.) PT with INR Urgent (13:48 12/02/2016 EHassan R.N. per protocol) (Ack 13:50 LNations ER Tech1) (13:52 EHassan R.N.) Chest 1V Urgent (14:28 12/02/2016 Sterling JEAN-BAPTISTE) (Ack 14:33 IJurca ER Tech1) (14:37 EHassan R.N.) Pharmaceutical Compounding Supervisor (Continuous) (14:28 12/02/2016 Sterling JEAN-BAPTISTE) (Ack 14:33 IJurca ER Tech1) (14:37 EHassan R.N.) Pulse oximeter (14:28 12/02/2016 Sterling JEAN-BAPTISTE) (Ack 14:33 IJurca ER Tech1) (14:37 EHassan R.N.) UA-Culture if indicated Urgent (14:29 12/02/2016 Sterling JEAN-BAPTISTE) (Ack 14:33 IJurca ER Tech1) (16:42 LSullivan R.N.) Blood Culture (No) (N/A) Urgent (15:39 12/02/2016 Sterling JEAN-BAPTISTE) (Ack 15:42 LNations ER Tech1) (15:50 MCook R.N.) MEDICATION ORDERS: Zithromax PO 500 mg (NOW) (15:38 12/02/2016 Sterling JEAN-BAPTISTE) (16:02 LSullivan R.N.) IV FLUIDS: Dilaudid IV 2 mg (HIGH ALERT MEDICATION, NOW) (14:28 12/02/2016 Sterling JEAN-BAPTISTE) (14:37 EHassan R.N.) IV NS : initial bolus 1000 mL (1000 mL/hr), then 200 mL/hr (NOW) (14:28 12/02/2016 Sterling JEAN-BAPTISTE) (14:37 EHassan R.N.) Dilaudid IV 2 mg (HIGH ALERT MEDICATION, NOW) (14:59 12/02/2016 Sterling JEAN-BAPTISTE) (15:13 EHassan R.N.) KCl IV 20 meq/100mL (over 1 hr) (15:38 12/02/2016 Sterling JEAN-BAPTISTE) (16:13 LSullivan R.N.) Rocephin IV 2 gm/50mL (NOW) (15:38 12/02/2016 Sterling JEAN-BAPTISTE) (16:02 LSullivan R.N.) IV NS : initial bolus 1000 mL (1000 mL/hr), then 1000 mL/hr (NOW) (16:48 12/02/2016 Sterling JEAN-BAPTISTE) (16:51 LSullivan R.N.) Dilaudid IV 2 mg (HIGH ALERT MEDICATION, NOW) (18:27 12/02/2016 Sterling JEAN-BAPTISTE) (Cancelled: Other18:40 Sterling JEAN-BAPTISTE) ORDER SHEET NOTES: [Electronically signed by Martita Humphreys R.N. (20:58 12/02/2016)] [Electronically signed by Roxane Hale MD (10:37 12/10/2016)] [Electronically locked/signed by Martita Humphreys R.N. (20:58 12/02/2016)]
--- NOTE | 2016-12-02 20:34 | ED NURSING NOTES ---
Clinical Report - Nurses [facility] [address] [place] [address] 12/02/2016 12:31 Patient: TRAVIS STACY TRIAGE Acuity: LEVEL 3. Chief Complaint: WEAKNESS, DIARRHEA and ABDOMINAL PAIN. Alert. No acute distress. SEPSIS SCREEN: Sepsis Screen. Negative (no infection suspected/documented). JAZMINE COMA SCORE: Jazmine Coma Scale: 15- eyes open spontaneously (4); best verbal response- oriented x 4 (5); best motor response- obeys commands (6). --12:52 Martita Humphreys R.N. 12:38 12/02/16. BP: 112/87. HR: 88. RR: 18. O2 saturation: 98%. Temp: 97.8 F (oral). Pain level now: 03/14. --12:52 Martita Humphreys R.N. Height/Length: 71 inches Per Patient. --12:38 Martita Humphreys R.N.. <<STRICKEN ENTRY-- Weight: 61.2 kg stated. BMI: 18.8. --END STRIKE>> --12:38 Martita Humphreys R.N.. Weight: 70.3 kg stated. BMI: 21.6. --12:38 Martita Humphreys R.N. Medications Aspirin Childrens Oral. BuPROPion HBr Oral 75 MG, TID. BusPIRone HCl Oral 15 mg, 3x a day. Fish Oil Oral. Humira Subcutaneous (Kit 40 mg/0.8mL), 10 DAYS. KCL 10 meq, daily. Multivitamin Oral. Omeprazole Oral 20 mg, daily. Oxycodone-Acetaminophen Oral. Plaquenil Oral 200 mg. Pravastatin Sodium Oral 20 mg, daily. Vitamin c Oral. --12:44 Martita Humphreys R.N. Allergies No Known Drug Allergy. --12:44 Martita Humphreys R.N. Medication/allergy information source: the patient. --12:52 Martita Humphreys R.N. History Arrived by private vehicle. Historian: patient. Accompanied by family. Primary physician (Dr. Antunez). ( Pt is here for a multitude of reasons "SOB, disorientation, having hemorrhoids problems and abdominal pain, RA pain and gas" Pt has also ran out of his pain meds, unable to get an appointment with doctor until the . Here for further evaluation). This is a new problem. Symptoms are intermittent and still present (1 1/2 weeks). 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 PAST MEDICAL HX: Immunizations: up-to-date. SOCIAL HX: Heavy tobacco smoker- less than 1 pack per day. Regular alcohol use; consumes three beers a day. (has not drank for about 2- weeks). History of drug use: marijuana. Recently used drugs just prior to arrival. No infectious disease exposure. ABUSE ASSESSMENT: No report of abuse. SELF HARM ASSESSMENT: A self harm assessment was performed. The patient answered "no" to the question "Do you have thoughts of harming or killing yourself?" and "Have you recently had thoughts about harming or killing others?". FALL RISK ASSESSMENT: Fall risk assessment completed. No fall risk identified. NUTRITIONAL RISK ASSESSMENT: The nutritional risk assessment revealed no deficiencies. FUNCTIONAL ASSESSMENT: Functional assessment: no impairments noted. LEARNING NEEDS ASSESSMENT: The learning needs assessment revealed no barriers. SKIN INTEGRITY ASSESSMENT: Skin integrity risk assessment completed. No skin integrity risk identified. --12:52 Martita Humphreys R.N. PROBLEMS: Vomiting. Bowel Obstruction. Hypomagnesemia. Hypertension. Arthritis. Hyperlipidemia. Gastroesophageal Reflux. Depression. Diabetes Mellitus. Hiatal Hernia. Myofascial Strain. Hypokalemia. Gastroenteritis. Anxiety Reaction. Rheumatoid Arthritis. --12:44 Martita Humphreys R.N. ADDITIONAL SURGERIES: Inguinal Hernia Repair. --12:44 Martita Humphreys R.N. Interventions ID band on patient. --12:52 Martita Humphreys R.N. PHYSICAL ASSESSMENT Ambulatory to room. GENERAL / NEURO / PSYCH: Alert. Oriented X 4. Appears in pain. HEENT: Pupils equal, round and reactive to light. No facial asymmetry noted. Mucous membranes are pink. RESPIRATORY: Respirations not labored. Decreased breath sounds posteriorly and in the bases bilaterally; decreased breath sounds in the right mid-lung posteriorly and upper lung posteriorly; decreased breath sounds in the left lung base posteriorly, mid-lung posteriorly and in the bases bilaterally and upper lung posteriorly. CVS: Capillary refill less than 2 seconds. Pulses within normal limits. GI / : Abdomen soft and nontender. SKIN: Skin intact. Skin is pale. Skin is warm and dry. Poor skin turgor. --12:53 Martita Humphreys R.N. NURSING PROGRESS NOTES The initial plan of care for this patient has been created This plan of care was discussed with the patient. Patient gowned. Reassurance given. Two patient identifiers checked. Call light placed in reach. Side rails up x 1. Bed placed in lowest position. Patient ready for evaluation- chart flagged. --12:53 Martita Humphreys R.N. EKG time: (1249). EKG was ordered, performed by a son and shown to the ED physician. --13:16 Haley Mott ER Tech1 13:19 12/02/2016 Site #1 started via IV in the right antecubital space with an 20g angiocath. Blood drawn: rainbow set. Labeled in the presence of the patient and sent to the lab. --13:34 Martita Humphreys R.N. 14:37 12/02/2016 Dilaudid (HYDROmorphone HCl PF) IVP 2 mg given over 1 minute(s) via site #1. Allergies verified, confirmed 5 rights and sedative warning given to the patient and patient's family. IV patency established. IV site checked: no pain, redness, or swelling. IV flushed thoroughly pre- and post-medication administration. IVP given by RN. --14:37 Martita Humphreys R.N. 14:37 12/02/2016 Started bag #1 1000 mL IV Fluids IV NS (Saline); at 1000 mL/hr over 1 hour(s) via site #1 via IV pump. Allergies verified and confirmed 5 rights. IV patency established. IV site checked: no pain, redness, or swelling. IV flushed thoroughly pre- and post-medication administration. Completed per protocol. --14:37 Martita Humphreys R.N. Cardiac rhythm: normal sinus rhythm. Oxygen administered by nasal cannula at 2 liters. campus monitor, pulse oximeter and NIBP monitor placed on patient; monitor alarms on. Reassurance given. The patient is calm. Overall patient status is the same- he states feels the same. ( Pt states "still in pain post meds given" Will notify MD. Comfort provided). GENERAL / NEURO / PSYCH: Denies headache. GI / : Denies nausea. Two patient identifiers checked. Call light placed in reach. --14:44 aMrtita Humphreys R.N. 14:41 12/02/16. BP: 100/75. HR: 100. RR: 30. O2 saturation: 93% on room air. Temp: 98.3 F (oral). Pain level now: 03/14. --14:44 Martita Humphreys R.N. 14:44 12/02/16. O2 saturation: 97% on nasal cannula at 2 liters/minute. --14:44 Martita Humphreys R.N. 15:11 12/02/2016 Dilaudid (HYDROmorphone HCl PF) IVP 2 mg given over 1 minute(s) via site #1. Allergies verified, confirmed 5 rights and sedative warning given to the patient and patient's family. IV patency established. IV site checked: no pain, redness, or swelling. IV flushed thoroughly pre- and post-medication administration. IVP given by RN. --15:13 Martita Humphreys R.N. 15:00 12/02/16. BP: 99/58 (regular adult cuff) taken on the left arm, via an automated monitor, while lying. HR: 101. RR: 20. O2 saturation: 98% on nasal cannula at 2 liters/minute. Pain level now: 01/11. --15:14 Martita Humphreys R.N. Cardiac rhythm: normal sinus rhythm. Reassurance given. Two patient identifiers checked. Call light placed in reach. --15:14 Martita Humphreys R.N. 15:47 12/02/16. BP: 109/91. HR: 97. RR: 23. O2 saturation: 99% on nasal cannula at 2 liters/minute. --15:50 Joo Jacobson R.N. Blood samples drawn from the right antecubital space and left antecubital space peripheral IV site: blood culture. Initial blood discarded. Line flushed with 10 mL normal saline post blood draw. ( (Covering for primary RN while she is on break.) Introduced self, Pt is drowsy in bed, RR drops to 12 when he is sleeping, Pt is easy to arouse, currently maintaining sats on 2L nasal cannula, RR increases to 20 when awake. Lab at bedside drawing blood for cultures x2.). --15:50 Joo Jacobson R.N. 16:02 12/02/2016 Started 2 gm of Rocephin (CefTRIAXone Sodium) IVPB in bag #1 50 mL; at 150 mL/hr via site #1 via IV pump. Allergies verified and confirmed 5 rights. --16:02 Paz Laurent R.N. 16:02 12/02/2016 Zithromax PO 500 mg given. Confirmed 5 rights. --16:02 Paz Laurent R.N. <<STRICKEN ENTRY-- 16:13 12/02/2016 Started 20 meq of KCL (Potassium Chloride) IVPB in bag #1 100 mL; at 25 mL/hr over 4 hour(s) via site #1 via IV pump. Confirmed 5 rights. --16:13 Paz Laurent R.N. --END STRIKE>> Change to Details. --16:52 Paz Laurent R.N. <<STRICKEN ENTRY-- 16:13 12/02/2016 Started 20 meq of KCL (Potassium Chloride) IVPB in bag #1 100 mL; at 50 mL/hr over 4 hour(s) via site #1 via IV pump. Confirmed 5 rights. --16:52 Paz Laurent R.N. --END STRIKE>> Change to Details. --16:52 Paz Laurent R.NJames 16:13 12/02/2016 Started 20 meq of KCL (Potassium Chloride) IVPB in bag #1 100 mL; at 50 mL/hr over 1 hour(s) via site #1 via IV pump. Confirmed 5 rights. --16:52 Paz Laurent R.N. 16:28 12/02/16. ( Assisted patient to stand to void, to obtain urine specimen, pt steady on feet, family at pt's side so he doesn't fall.). --16:28 Paz Laurent R.N. 16:33 12/02/2016 IV Fluids IV NS Bag Change: bag #1 infused. Total amount infused: 1000. STARTED bag #2 (1000 mL) at 200 mL/hr via IV pump. Confirmed 5 rights. IV patency established. IV site checked: no pain, redness, or swelling. IV flushed thoroughly. --16:43 Paz Laurent R.N. 16:39 12/02/16. Patient ID band checked for patient name and birthdate: patient confirmed. Clean catch urine collected with return of mata-colored urine; sample sent to lab for urinalysis and culture. Specimen labeled in the presence of the patient. --16:39 Paz Laurent R.N. 16:51 12/02/2016 Started bag #2 1000 mL IV Fluids IV NS (Saline); at 1000 mL/hr via site #1 via IV pump. (IV bag #2 titrated up to 1000mls/hr as pt's urine was very dark in color, family states pt does not drink any water at all, and "he hates it".). --16:51 Paz Laurent R.N. 17:00 12/02/16. BP: 97/71 (regular adult cuff) taken on the left arm, via an automated monitor, while lying. HR: 97. RR: 22. O2 saturation: 98% on nasal cannula at 2 liters/minute. Temp: 98.8 F (oral). Pain level now: 5/10. --17:55 Martita Humphreys R.N. Cardiac rhythm: normal sinus rhythm. campus monitor, pulse oximeter and NIBP monitor placed on patient; monitor alarms on. Reassurance given. --17:55 Martita Humphreys R.N. Reassessment after oxygen and fluids administered and medication administered. He is calm and has had no adverse reaction. Overall patient status is improved- he states feels better. GENERAL / NEURO / PSYCH: Denies headache or anxiety. RESPIRATORY: Denies difficulty breathing. Inspiratory bilateral wheezes posteriorly and in the bases. CVS: Denies chest pain. GI / : Denies nausea. SKIN: Skin is warm. Skin color within normal limits. --17:57 Martita Humphreys R.N. Cardiac rhythm: normal sinus rhythm. --18:00 Martita Humphreys R.N. 17:59 12/02/16. BP: 98/73. HR: 101. RR: 20. O2 saturation: 98% on nasal cannula at 2 liters/minute. Pain level now: 12/12. --18:00 Martita Humphreys R.N. 17:45 12/02/2016 Rocephin IVPB Discontinued: bag #1 completed. Total amount infused: 50 mL. IV patency established. IV site checked: no pain, redness, or swelling. IV flushed thoroughly. --18:00 Martita Humphreys R.N. 18:00 12/02/2016 Zithromax PO Response: no adverse reaction. --18:00 Martita Humphreys R.N. ( H/P forms on chart.). --19:04 Haley Mott ER Tech1 19:09 12/02/16. BP: 106/70 (regular adult cuff) taken on the left arm, via an automated monitor, while sitting. HR: 105. RR: 22. O2 saturation: 97% on nasal cannula at 2 liters/minute. Temp: 97.5 F (temporal). Pain level now: 12/12. --19:12 Martita Humphreys R.N. Cardiac rhythm: normal sinus rhythm. Oxygen administered by nasal cannula at 2 liters. Monitoring of patient in place. Reassurance given. Reassessment after oxygen and fluids administered. He is calm. Overall patient status is improved- he states feels better. ( Pt was supposed to be discharged, daughter concerned about his "condition" MD Flaherty aware, pt staying and will be admitted. Comfort provided, will monitor). Call light placed in reach. Side rails up x 2. Bed placed in lowest position. Brakes of bed on. --19:12 Martita Humphreys R.N. 19:19 12/02/2016 IV Fluids IV NS Discontinued: bag #1 completed upon admission. Total amount infused: 1000 mL. IV patency established. IV site checked: no pain, redness, or swelling. IV flushed thoroughly. --19:19 Martita Humphreys R.N. late entry - 20:00. campus monitor, pulse oximeter and NIBP monitor placed on patient; monitor alarms on. Reassurance given. Reassessment after oxygen administered. He is calm and resting quietly. Overall patient status is improved- he states feels better. GENERAL / NEURO / PSYCH: Denies headache or anxiety. RESPIRATORY: Denies difficulty breathing. No respiratory distress. CVS: Denies chest pain. GI / : Denies nausea. SKIN: Skin is warm. Skin color within normal limits. --20:54 Martita Humphreys R.N. 20:00 12/02/16. BP: 106/58. HR: 85. RR: 15. O2 saturation: 98% on nasal cannula at 2 liters/minute. Temp: 98.3 F (oral). Pain level now: 12/12. --20:54 Martita Humphreys R.N. DISPOSITION / DISCHARGE 20:55 12/02/2016 Site #1 reassessed; patent, infusing well and no signs of infection or infiltration. Good blood return present. Converted to saline lock. --20:55 Martita Humphreys R.N. Condition at departure: improved. The goals identified in the patient's plan of care were met. Transported via stretcher by transport team with O2. Report was given via a phone call. Report included patient's care, treatment, medications, reviewed medication reconcilliation, and condition (including any recent changes or anticipated changes). All questions were answered. Report was acknowledged and care was transferred. (KLA Triplett). FALL RISK ASSESSMENT: Fall risk assessment completed. No fall risk identified. --20:56 Martita Humphreys R.N. 20:45 12/02/16. BP: 99/54. HR: 89. RR: 18. O2 saturation: 98% on nasal cannula at 2 liters/minute. Temp: 98.3 F (oral). Pain level now: 11/11. --20:56 Martita Humphreys R.N. Departure time: 2056 PM. --20:58 Martita Humphreys R.N. Locked/Released at 12/02/2016 20:58 by Martita Humphreys R.N.
[2016-12-02 21:27] VITALS: BP 106/76
--- NOTE | 2016-12-02 21:36 | History & Physical Report ---
Information Source Information Source: Self Reliability: Poor History Chief Complaint shortness of breath and cough History of Present Illness Patient is a 70 year old male presenting from home with both acute mental status changes, cough and fever. Patient is a poor historian and could not provide much history. Patient as per family documentation basically said that the patient had been in his usual state of health when he was complaining of increased cough and shortness of breath. Patient additionally was not making sense like he was in the past. Patient usually lives independently at home and manages everything himself. Patients family was told of the illness by the patient, and when they came to the house they found the patient disorganzied confused and had difficulty taking care of himself. They brought the patient in as a result. Currently they do not have the means to take care of him, and would appreciate evaluation. Patient History 1. COPD exacerbation 2. Pneumonia Social History Patient currently lives alone by himself. He claims that he is an ex smoker, can not state how long he has smoked for. Denies drinking alcohol but uses marijuana daily. Patient usually manages his adls independetly however family is finding rhea is not the case currently. Family History Family history was reviewed; no changes noted. Advance Directive None Medications and Allergies Medications Home Medications Aspirin 81 mg daily Bupropion 75 mg tid Buspirone hcl 15 mg tid fish oil humira sub cutaneous kcl 10 meq daily omeprazole 20 mg daily Oxycodone 5/325 tid plaquenil 200 mg daily pravastatin 20 mg daily Vitamin C Current Medications Sig/Bogdan Start time Last Medication Dose Route Stop Time Status Admin Pantoprazole Sodium 40 MG DAILY@0600 12/03 0600 12/03 IV 0535 Albuterol/Ipratropium 3 ML RTQ6H 12/03 0200 12/03 IN 0120 Oxycodone/ See Dose Q6H PRN 12/03 0015 AC 12/03 Acetaminophen Insts (1) PO 0535 Methylprednisolone 60 MG Q6HR 12/03 0000 AC 12/03 Sodium Succinate IV 0535 Acetaminophen 650 MG Q6H PRN 12/02 2000 AC PO Dose Instructions: (1)Oxycodone/Acetaminophen: 1 - 2 TABLETS Allergies Coded Allergies: No Known Drug Allergy (08/01/16) Review of Systems Constitutional Other (too confused to tell ). Physical Exam Vital Signs / I&Os Vital Signs Date Time Temp Pulse Resp B/P Pulse O2 O2 Flow FiO2 Ox Delivery Rate 12/03 0202 98.2 64 15 113/59 96 Nasal 2.0 Cannula 12/03 0121 2.0 12/03 0023 Nasal 2.0 Cannula 12/022 97.9 77 17 118/62 95 Nasal 2.0 Cannula 12/027 97.5 86 18 106/76 96 Nasal 2.0 Cannula I&O 12/02 0800 12/02 1600 12/03 0000 Intake Total 0 Output Total 250 Balance -250 General Appearance Cooperative, No acute distress, - confused HEENT Atraumatic, PERRLA, Moist mucous membranes Lungs - poor air exchange - bilateral ronchi Neck Supple, No JVD Cardiovascular Regular rate and rhythm, No murmurs, gallops, rubs Abdomen Soft, No tenderness, No guarding Extremities No edema, Normal pulses, No tenderness Skin No Breakdown Neurological Normal speech, Normal tone, Cranial nerves intact Psych/Mental Status Confused LAB Results Laboratory Tests 12/02 12/02 12/02 1310 1635 2130 Chemistry Plasma Sodium (136 - 145 mmol/L) 140 140 Plasma Potassium (3.5 - 5.1 mmol/L) 3.3 4.5 Plasma Chloride (98 - 107 mmol/L) 101 104 CO2 (Enzymatic) (21 - 32 mmol/L) 31 32 BUN (7 - 18 mg/dL) 12 13 Creatinine (0.6 - 1.3 mg/dL) 1.1 1.1 Est GFR ( Amer) (mL/min) >60 >60 Est GFR (Non-Af Amer) (mL/min) >60 >60 Glucose (70 - 110 mg/dL) 111 89 Plasma Calcium (8.5 - 10.1 mg/dL) 8.3 8.0 Total Bilirubin (0.0 - 1.0 mg/dL) 3.0 2.2 AST (15 - 37 U/L) 39 42 ALT (12 - 78 U/L) 59 54 Alkaline Phosphatase (46 - 116 U/L) 91 85 Total Protein (6.4 - 8.2 g/dL) 6.8 6.6 Albumin (3.3 - 5.0 g/dL) 2.5 2.4 Amylase (25 - 115 U/L) 25 Lipase (73 - 393 U/L) 109 Coagulation INR (0.8 - 1.2) 1.3 Hematology WBC (4.5 - 11.5 K/uL) 7.6 RBC (4.50 - 5.90 M/uL) 4.80 Hgb (13.5 - 17.5 gm/dL) 14.7 Hct (41.0 - 53.0 %) 45.8 MCV (80 - 100 fL) 96 MCH (26 - 34 pg) 31 RDW (11.6 - 14.8 %) 15.6 Neut % (Auto) (50 - 75 %) 62.8 Lymph % (Auto) (25 - 40 %) 20.9 [place] % (Auto) (3 - 14 %) 13.6 Eos % (Auto) (0 - 4 %) 1.7 Baso % (Auto) (0 - 2 %) 1.0 Plt Count, EDTA (150 - 400 K/uL) 155 PUBS MCHC (31 - 37 g/dL) 32 Urines Urine Color YELLOW Urine Appearance CLEAR Urine pH (5.0 - 8.0) 5.5 Ur Specific [place] (1.010 - 1.030) 1.020 Urine Protein (NEGATIVE) 2+ Urine Ketones (NEGATIVE) NEGATIVE Urine Blood (NEGATIVE) NEGATIVE Urine Nitrite (NEGATIVE) NEGATIVE Urine Bilirubin (NEGATIVE) 1+ Ur Bilirubin Confirm (NEGATIVE) POSITIVE Urine Urobilinogen (0.2 - 1.0 EU/dL) 1.0 Ur Leukocyte Esterase (NEGATIVE) NEGATIVE Urine RBC (0 - 1 rbc/hpf) 0-1 Urine WBC (0 - 1 wbc/hpf) 0-1 Ur Epithelial Cells (0 - 5 EPI/hpf) 1-3 Urine Bacteria (NONE SEEN) NONE SEEN Urine Glucose (NEGATIVE) NEGATIVE Urine Comment CULT NOT INDICATED Microbiology Date/Time Procedure - Status Source Growth 12/02 1550 Blood Culture - RES BLOOD GRAM POSITIVE JAMAR 12/02 1545 Blood Culture - RECD BLOOD Assessment and Plan Problem List 1. Pneumonia Plan - evidence of retro-cardiac pneumonia - will treat with ceftriaxone and azithromycin - may be contributing to altered mental status - will provide adequate hydration 2. COPD exacerbation Plan - present on admission - chronic condition - pt has evidenc of poor air exchange and bilateral wheezes - will provide solumedrol 60 mg TID - duonebs q6h - copd exacerbation secondary to infection - encourage smoking cessation 3. Dementia Plan - patient has not been formally diagnosed with dementia - pt claims he has memory problems - currently patient is unabel to go home to take care of himself - will monitor for improvement
--- NOTE | 2016-12-02 22:20 | NUR ---
PT A&OX3, LS COARSE W/ EXP WHEEZES IN BASES AND BT ACTIVE. C/O PAIN AT 8/10, PT KEEPS FALLING ASLEEP. NO C/O NAUSEA. SOME SOB WHEN AMBULATING FROM GURNEY TO BED. VSS. RESTING W/ CALL LIGHT IN REACH.
[2016-12-02 22:32] VITALS: BP 118/62
[2016-12-02] MEDS ORDERED: ASPIRIN ADULT L81 MG PO (22:51)
[2016-12-02] MEDS ORDERED: BUSPIRONE HCL15 MG PO (22:52)
[2016-12-02] MEDS ORDERED: BUPROPION HCL75 MG PO (22:52)
[2016-12-02] MEDS ORDERED: FISH OIL306 MG (22:53)
[2016-12-02] MEDS ORDERED: HUMIRA PEN (22:54)
[2016-12-02] MEDS ORDERED: KLOR-CON 1010 MEQ PO (22:54)
[2016-12-02] MEDS ORDERED: PRILOSEC20 MG PO (22:55)
[2016-12-02] MEDS ORDERED: MULTIPLE VITAMIN PO (22:55)
[2016-12-02] MEDS ORDERED: PRAVACHOL20 MG (22:57)
[2016-12-02] MEDS ORDERED: OXAYDO5 MG PO (22:57)
[2016-12-02] MEDS ORDERED: PLAQUENIL200 M1 PO (22:57)
[2016-12-02] MEDS ORDERED: VITAMIN C500 M1 PO (22:58)
--- NOTE | 2016-12-03 01:10 | NUR ---
PT A&O X3, ABLE TO MAKE NEEDS KNOWN, PLEASANT AND COOPERATIVE. RESTING COMFORTABLY IN BED. STAGE II PRESSURE WOUND NOTED ON COCCYX, DOCUMENTED AND DRESSING APPLIED; WOUND CONSULT REQUESTED. LUNG SOUNDS COARSE THROUGHOUT, OCCASIONAL COUGH THAT PT REPORTS IS SOMETIMES PRODUCTIVE WITH CLEAR SPUTUM. ON 2L O2 VIA NC. C/O CHRONIC MODERATE TO SEVERE NECK PAIN. MD NOTIFIED AND ORDERS ISSUED FOR PRN PERCOCET PT USES AT HOME FOR PAIN MANAGEMENT. 2+ BLE EDEMA PRESENT, FOCUSED IN BILAT ANKLES AND FEET. VSS.
[2016-12-03 02:02] VITALS: BP 113/59
--- NOTE | 2016-12-03 03:26 | NUR ---
LAB RESULTS FOR BLOOD CULTURE PHONED IN, GRAM POSITIVE JAMAR ISOLATED FROM AEROBIC TUBE. NOTIFIED BY PHONE AT 0705.
[2016-12-03 07:14] VITALS: BP 100/72
--- NOTE | 2016-12-03 07:29 | Progress Note ---
Subjective General Note Date: 12/03/2016 Admission Date: 12/03/2016 Hospital Day: 1 PCP: Tulio Status: Advanced Directive: full code Room: 201 70 year old male within prior history of rheumatoid arthritis early dementia presenting with mental status changes cough and fever. Patient was admitted under Dr. Meza for mental status change. Patient found to have a sore immunization and is thought. Diagnosed with COPD exacerbation along with the pneumonia. Patient was seen and examined at bedside. Patient reports that he is feeling relatively well. Patient corning of a a persistent cough and shortness of breath. Constitutional Denies: Sweats, Weakness. Respiratory Denies: SOB w/exertion. Cardiovascular Denies: Palpitations. Skin Denies: Jaundice. Physical Exam Vital Signs / I&Os Vital Signs Date Time Temp Pulse Resp B/P Pulse O2 O2 Flow FiO2 Ox Delivery Rate 12/03 0714 97.3 49 25 100/72 97 Nasal 2.0 Cannula 12/03 0202 98.2 64 15 113/59 96 Nasal 2.0 Cannula 12/03 0121 2.0 12/03 0023 Nasal 2.0 Cannula 12/02 2232 97.9 77 17 118/62 95 Nasal 2.0 Cannula 12/027 97.5 86 18 106/76 96 Nasal 2.0 Cannula I&O 12/02 0800 12/02 1600 12/03 0000 Intake Total 0 Output Total 350 Balance -350 General Appearance Oriented X3 HEENT EOMI Lungs Clear to auscultation Cardiovascular Regular rate and rhythm Abdomen No tenderness, No guarding Skin No Breakdown Psych/Mental Status patient speaks appropriately, mood appears to be normal Mild signs of confusion LAB Results Laboratory Tests 12/02 12/02 12/02 12/03 1310 1635 2130 0648 Chemistry Plasma Sodium (136 - 145 mmol/L) 140 140 Plasma Potassium (3.5 - 5.1 mmol/L) 3.3 4.5 Plasma Chloride (98 - 107 mmol/L) 101 104 CO2 (Enzymatic) (21 - 32 mmol/L) 31 32 BUN (7 - 18 mg/dL) 12 13 Creatinine (0.6 - 1.3 mg/dL) 1.1 1.1 Est GFR ( Amer) (mL/min) >60 >60 Est GFR (Non-Af Amer) (mL/min) >60 >60 Glucose (70 - 110 mg/dL) 111 89 Plasma Calcium (8.5 - 10.1 mg/dL) 8.3 8.0 Total Bilirubin (0.0 - 1.0 mg/dL) 3.0 2.2 AST (15 - 37 U/L) 39 42 ALT (12 - 78 U/L) 59 54 Alkaline Phosphatase (46 - 116 U/L) 91 85 Total Protein (6.4 - 8.2 g/dL) 6.8 6.6 Albumin (3.3 - 5.0 g/dL) 2.5 2.4 Amylase (25 - 115 U/L) 25 Lipase (73 - 393 U/L) 109 Coagulation INR (0.8 - 1.2) 1.3 Hematology WBC (4.5 - 11.5 K/uL) 7.6 4.6 RBC (4.50 - 5.90 M/uL) 4.80 4.62 Hgb (13.5 - 17.5 gm/dL) 14.7 14.1 Hct (41.0 - 53.0 %) 45.8 44.3 MCV (80 - 100 fL) 96 96 MCH (26 - 34 pg) 31 31 RDW (11.6 - 14.8 %) 15.6 16.1 Neut % (Auto) (50 - 75 %) 62.8 86.8 Lymph % (Auto) (25 - 40 %) 20.9 10.2 [place] % (Auto) (3 - 14 %) 13.6 2.1 Eos % (Auto) (0 - 4 %) 1.7 0.4 Baso % (Auto) (0 - 2 %) 1.0 0.5 Plt Count, EDTA (150 - 400 K/uL) 155 140 PUBS MCHC (31 - 37 g/dL) 32 32 Urines Urine Color YELLOW Urine Appearance CLEAR Urine pH (5.0 - 8.0) 5.5 Ur Specific [place] (1.010 - 1.030) 1.020 Urine Protein (NEGATIVE) 2+ Urine Ketones (NEGATIVE) NEGATIVE Urine Blood (NEGATIVE) NEGATIVE Urine Nitrite (NEGATIVE) NEGATIVE Urine Bilirubin (NEGATIVE) 1+ Ur Bilirubin Confirm (NEGATIVE) POSITIVE Urine Urobilinogen (0.2 - 1.0 EU/dL) 1.0 Ur Leukocyte Esterase (NEGATIVE) NEGATIVE Urine RBC (0 - 1 rbc/hpf) 0-1 Urine WBC (0 - 1 wbc/hpf) 0-1 Ur Epithelial Cells (0 - 5 EPI/hpf) 1-3 Urine Bacteria (NONE SEEN) NONE SEEN Urine Glucose (NEGATIVE) NEGATIVE Urine Comment CULT NOT INDICATED Microbiology Date/Time Procedure - Status Source Growth 12/02 1550 Blood Culture - RES BLOOD GRAM POSITIVE JAMAR 12/02 1545 Blood Culture - RECD BLOOD Assessment and Plan Problem List 1. Pneumonia Plan Pneumonia on appropriate antibiotics. Duoneb q6hrs. Patient assigned to acute care inpatient. 2. COPD exacerbation Plan Continue on the antibiotic along with Solu-Medrol. Encouraged smoking cessation 3. Dementia Plan Family concern about dementia; and forgetfulness. Cognitive decline likely will watch for any changes in behaviors signifying signs of dementia. Family is apprehensive about him going back to home; preference to have patient asigned to a Memory care center E&M Codes Rounding: Inpt-High/[id number]
--- NOTE | 2016-12-03 08:15 | NUR ---
RECEIVED PT IN BED, AWAKE, ALERT, ORIENTED, COHERENT, COOPEATIVE. V/S TAKEN AND RECORDED. ASSESSMENT DONE. PT DENIES PAIN AT THIS TIME. SEEN BY DR ROMAN EARLIER. WITH ORDERS MADE A AND CARRIED OUT. THEN ASSISTED PT UP IN THE CHAIR FOR MEALS. [place] OFF FROM O2. WASHED HIS HANDS AND FACE. DUE MEDS GIVEN. INSTUC PT TO INCREASED IN FLUID INTAKE, COUGH AND DEEP BREATH. NEEDS ATTENDED.
[2016-12-03 10:46] VITALS: BP 93/67
--- NOTE | 2016-12-03 12:51 | NUR ---
NUTRITION ASSESSMENT: S: Pt admitted with dx/o PNA, COPD, dementia (not formally dx), poor historian (see H&P). Per pts dtr, pt has lost 30# in 1 month. O: Diet Rx: General Regular Thin NKFA Wts: 69.4 kg Ht: 72" IBW: 67-84 kg BMI: 20.8 Est Kcals: ~0530-9421 kcals per day Est pro: ~70-80 g per day Est fluids: ~2100 mls per day Meds Incl: buspar, IV ABOs, prednisone, protonix, see eMar for complete list/details. Labs: Rev'd (12/02) glucose 89, BUN 13, Na+ 140, K+ 4.5, Ca+ 8.0, total pro 6.6, albumin 2.4, alk phos 85,
[2016-12-03 14:34] VITALS: BP 92/64
[2016-12-03 18:15] VITALS: BP 106/78
--- NOTE | 2016-12-03 18:20 | NUR ---
I discussed with the patient their current medications, possible side effects, and answered questions.
[2016-12-03 22:29] VITALS: BP 103/68
--- NOTE | 2016-12-03 23:44 | NUR ---
VSS. A&OX4. CALM AND COOPERATIVE WITH CARE. INDEPENDENT IN ROOM. UP TO CHAIR FOR MEALS. CALLS APPROPRIATELY. PERCOCET TWO TABS EFFECTIVE FOR PAIN. IV ANTIBIOTICS. WCTM.
[2016-12-04] VITALS (7 sets, daily range): BP systolic 86–113; BP diastolic 60–80
--- NOTE | 2016-12-04 05:56 | Progress Note ---
Subjective General Note Date: December 04, 2016 Admission Date: December 03, 2016 Hospital Day: 2 PCP: Dr. Chris Antunez Status: Inpatient, ACU Advanced Directive: Full code Room: 201 Admission History: The patient is a 70-year-old white male with a significant past mental history of rheumatoid arthritis, dementia, who presented to [facility] emergency department on the day of admission secondary to complaints of mental status changes cough and fever. ER evaluation at that time was consistent with mental status changes/ pneumonia, exacerbation of COPD. Secondary to the above, the patient was admitted by Iglesia Meza M.D. for further evaluation and treatment. For other history present illness, past medical history, family history, social history, review of systems, and admission physical examination please see the patient's history and physical examination and ER visit note in the patient's medical record. Subjective: The patient states she is doing well at this time. Denies shortness of breath. Mild cough. Ambulating without significant problems. Requires no ongoing supplemental oxygen. Patient requests: No specific Medications and Allergies Medications Current Medications Sig/Bogdan Start time Last Medication Dose Route Stop Time Status Admin Azithromycin 500 MG DAILY 12/03 1800 CAN IV Piperacillin/ 50 ML Q8HR 12/03 1400 CAN Tazobactam/Dextrose IV Piperacillin/ 50 ML 0400,1000,1600,2200 12/03 1000 AC 12/04 Tazobactam/Dextrose IV 0401 Buspirone HCl 15 MG BID 12/03 0900 AC 12/03 PO 2129 Hydroxychloroquine 200 MG DAILY 12/03 0900 AC 12/03 Sulfate PO 0816 Azithromycin 500 MG Q24HR 12/03 0700 AC 12/03 Sodium Chloride 250 ML IV 0701 Bupropion HCl 75 MG TID 12/03 0600 AC 12/03 PO 2129 Pantoprazole Sodium 40 MG DAILY@0600 12/03 0600 AC 12/03 IV 0535 Albuterol/Ipratropium 3 ML RTQ6H 12/03 0200 AC 12/04 IN 0113 Oxycodone/ See Dose Q6H PRN 12/03 0015 AC 12/03 Acetaminophen Insts (1) PO 2340 Methylprednisolone 60 MG Q6HR 12/03 0000 AC 12/03 Sodium Succinate IV 2340 Acetaminophen 650 MG Q6H PRN 12/02 2000 AC PO Dose Instructions: (1)Oxycodone/Acetaminophen: 1 - 2 TABLETS Allergies Coded Allergies: No Known Drug Allergy (08/01/16) Physical Exam Vital Signs / I&Os Vital Signs Date Time Temp Pulse Resp B/P Pulse O2 O2 Flow FiO2 Ox Delivery Rate 12/04 0213 98.4 70 15 94/69 95 Room Air 12/03 2351 Room Air 12/03 2229 97.9 87 16 103/68 94 Room Air 0.0 12/03 1815 97.7 95 18 106/78 92 Room Air 12/03 1615 Room Air 12/03 1434 97.5 87 18 92/64 95 Room Air 12/03 1051 93 Room Air 12/03 1046 99.1 94 18 93/67 12/03 0850 15 93 Room Air 0.0 12/03 0815 Nasal 2.0 Cannula 12/03 0724 2.0 12/03 0714 97.3 49 25 100/72 97 Nasal 2.0 Cannula I&O 12/04 0000 /01 1600 12/03 0800 Intake Total 260 1025 425 Output Total Balance 260 1025 425 General Appearance Alert, Oriented X3, Cooperative, No acute distress Lungs Scattered rhonchi. No significant expiratory wheezes. No rales. Cardiovascular Regular rate and rhythm, Normal S1 and S2 Abdomen Normal bowel sounds, Soft, No tenderness, No guarding Extremities No cyanosis, No clubbing, No edema, Strength = upper ext's, Strength = lower ext's Neurological Cranial nerves intact, Strength 5/5 x4 ext's, No lateralizing signs Psych/Mental Status Mental status normal, Mood normal LAB Results Laboratory Tests 12/03 0648 Hematology WBC (4.5 - 11.5 K/uL) 4.6 RBC (4.50 - 5.90 M/uL) 4.62 Hgb (13.5 - 17.5 gm/dL) 14.1 Hct (41.0 - 53.0 %) 44.3 MCV (80 - 100 fL) 96 MCH (26 - 34 pg) 31 RDW (11.6 - 14.8 %) 16.1 Neut % (Auto) (50 - 75 %) 86.8 Lymph % (Auto) (25 - 40 %) 10.2 [place] % (Auto) (3 - 14 %) 2.1 Eos % (Auto) (0 - 4 %) 0.4 Baso % (Auto) (0 - 2 %) 0.5 Plt Count, EDTA (150 - 400 K/uL) 140 PUBS MCHC (31 - 37 g/dL) 32 Assessment and Plan Problem List 1. Pneumonia Plan -Improved, afebrile, WBC within normal limits. -Complete full course of antimicrobial therapy -Plan discharge in a.m. if stable -Outpatient follow-up with PCP 2. COPD exacerbation Plan -Much improved -No supplemental O2 requirement -Switch to oral corticosteroids. -Continue bronchodilators -Plan discharge in am if stable 3. Dementia Plan -Patient with history of mild memory loss -Discharge plans discuss home health follow-up -I will discuss with family possible discharge to home with close supervision with family -Outpatient follow-up with PCP 4. Hyperbilirubinemia Plan -Patient with findings of mild hyperbilirubinemia/elevated LFTs -Bilirubin/LFTs improving -Outpatient follow-up with PCP -Consider ultrasound for persistent findings as outpatient with Dr. Antunez 5. Bacteremia Plan -Patient with findings of bacillus species on blood culture -Asymptomatic-afebrile, WBC within normal limits -Probable contaminant Current status: Fair, improved Anticipated discharge date: Tomorrow Anticipated discharge placement: Home with home health Patient care time: Time spent in chart review, patient interview, physical exam, CPOE, and care documentation: 25 minutes Visit to patient today: 2 Complexity of care: Moderate E&M Codes Rounding: Inpt-Moderate/[id number] E&M Codes Discharge: Inpt >30 min spent/[id number]
--- NOTE | 2016-12-04 06:19 | NUR ---
PT DID NOT SLEEP MUCH DURING THE NIGHT. HAS A LOT OF QUESTIONS ABOUT "WHAT IS GOING TO HAPPEN". ALERT AND ORIENTED BUT FORGETFUL. VSS ON RA. EXP WHEEZES AUSCULTATED DURING ASSESSMENT. MEDICATED FOR NECK PAIN OF 8/10 TWICE DURING SHIFT. UP TO BATHROOM INDEPENDENTLY.
--- NOTE | 2016-12-04 11:27 | Discharge Summary ---
Discharge Summary Report Admit Date 12/03/16 Discharge Date 12/05/16 Admission Diagnosis 1. Pneumonia 2. COPD 3. Dementia-mild 4. Hyperbilirubinemia 5. Elevated liver function tests Discharge Diagnosis 1. Pneumonia 2. COPD 3. Dementia-mild 4. Hyperbilirubinemia 5. Elevated liver function tests Brief History The patient is a 70-year-old white male with a significant past mental history of rheumatoid arthritis, dementia, who presented to [facility] emergency department on the day of admission secondary to complaints of mental status changes cough and fever. ER evaluation at that time was consistent with mental status changes/ pneumonia, exacerbation of COPD. Secondary to the above, the patient was admitted by Marisol Meza M.D. for further evaluation and treatment. For other history present illness, past medical history, family history, social history, review of systems, and admission physical examination please see the patient's history and physical examination and ER visit note in the patient's medical record. Hospital Course The following problems and their management were noted during the patient's hospitalization: 1. Pneumonia The patient was admitted with findings of retrocardiac pneumonia. He was treated with IV antimicrobials in the form of Rocephin/Zithromax. His symptoms improved dramatically during his hospital stay. He was afebrile at the time of discharge. He had normal WBC at time of discharge. He was discharged on Ceftin 500 mg by mouth twice a day to complete a full 10 day course of antimicrobial therapy. He will follow-up with his PCP next week. 2. COPD The patient had findings of COPD. He underwent treatment with bronchodilators do nebs/albuterol. He required no supplemental oxygen at time of discharge. He was up ambulating without significant shortness of breath at the time of discharge. He will follow-up with his PCP next week. O2 sat of 95% on room air at discharge. See discharge instructions . 3. Dementia-mild The patient had findings of mild dementia. The patient had mild memory loss. No further evaluation was undertaken during the patient's hospitalization. He will follow-up with his PCP next week. 4. Hyperbilirubinemia The patient had findings of mild hyperbilirubinemia. This improved throughout his hospitalization. It was associated with mild LFT abnormalities which also improved throughout the patient's hospitalization. Abdominal ultrasound showed no findings of cholelithiasis or clear evidence of biliary tract obstruction. Outpatient follow-up with PCP next week. Recommend repeat LFTs in 1-2 weeks 5. Elevated liver function tests See above General Appearance Alert, Oriented X3, Cooperative, No acute distress Lungs Scattered rhonchi, no wheezes, no rales Cardiovascular Regular Rate, Normal S1, Normal S2 Abdomen Normal bowel sounds, Soft, No tenderness, No hepatospenomegaly Neurological Normal speech, Strength at 5/5 X4 ext, Cranial nerves 3-12 NL Psych/Mental Status Mental status NL, Mood NL Lab/Imaging Laboratory Tests 12/04 0845 Chemistry Plasma Sodium (136 - 145 mmol/L) 142 Plasma Potassium (3.5 - 5.1 mmol/L) 3.8 Plasma Chloride (98 - 107 mmol/L) 106 CO2 (Enzymatic) (21 - 32 mmol/L) 26 BUN (7 - 18 mg/dL) 29 Creatinine (0.6 - 1.3 mg/dL) 1.5 Est GFR ( Amer) (mL/min) 59.77 Est GFR (Non-Af Amer) (mL/min) 49.32 Glucose (70 - 110 mg/dL) 139 Plasma Calcium (8.5 - 10.1 mg/dL) 8.7 Total Bilirubin (0.0 - 1.0 mg/dL) 1.3 AST (15 - 37 U/L) 40 ALT (12 - 78 U/L) 59 Alkaline Phosphatase (46 - 116 U/L) 86 Total Protein (6.4 - 8.2 g/dL) 6.5 Albumin (3.3 - 5.0 g/dL) 2.5 Hematology WBC (4.5 - 11.5 K/uL) 7.1 RBC (4.50 - 5.90 M/uL) 4.53 Hgb (13.5 - 17.5 gm/dL) 13.8 Hct (41.0 - 53.0 %) 43.2 MCV (80 - 100 fL) 95 MCH (26 - 34 pg) 30 RDW (11.6 - 14.8 %) 15.4 Neut % (Auto) (50 - 75 %) 84.9 Lymph % (Auto) (25 - 40 %) 9.0 [place] % (Auto) (3 - 14 %) 6.1 Eos % (Auto) (0 - 4 %) 0 Baso % (Auto) (0 - 2 %) 0 Plt Count, EDTA (150 - 400 K/uL) 178 PUBS MCHC (31 - 37 g/dL) 32 Discharge Instructions/Meds For other recommendations regarding discharge diet, activity, followup, and discharge medications please see the patient's discharge instructions. Discharge condition: Fair, improved Greater than 30 min. was spent in the patient's discharge preparation including discharge interview and physical examination, progress note, discharge instructions, and discharge summary The patient was interviewed and examined on the day of discharge. E&M Codes Discharge: Inpt >30 min spent/[id number]
--- NOTE | 2016-12-04 19:54 | NUR ---
A&OX3, LS COARSE, HR IS REG AND BT ACTIVE. +1 EDEMA IN BLE'S. C/O PAIN IN NECK AT 8/10, GIVING MEDS WITH 2100 MEDS PER PT REQUEST. NO [place] OR SOB. AMBULATING AROUND ROOM IND W/ NO O2 ON AND TOLERATING WELL. VSS. RESTING W/ CALL LIGHT IN REACH.
[2016-12-05 01:33] VITALS: BP 111/80
--- NOTE | 2016-12-05 01:34 | NUR ---
REQUESTED PAIN MEDS FOR 8/10 STABBING NECK PAIN. ALERT,ORIENTED.
--- NOTE | 2016-12-05 06:32 | NUR ---
SLEPT WELL THIS SHIFT, REQUESTED PAIN MEDS X1 FOR CHRONIC NECK PAIN. AMBULATES INDEPENDENTLY TO TOILET. STATES FEELING BETTER.
[2016-12-05 07:18] VITALS: BP 120/94
[2016-12-05] MEDS ORDERED: CEFTIN500 MG PO (09:58)
[2016-12-05] MEDS ORDERED: ALBUTEROL HFA60 DOSE IN (10:03)
[2016-12-05] MEDS ORDERED: COMBIVENT RESPIMAT IN (10:03)
--- NOTE | 2016-12-05 10:05 | Provider's Discharge Care Plan ---
Problem, Goal, Plan Problem List 1. Pneumonia Goals: Improve disease control, Prevent disease progress Instructions: Follow up as directed, Take meds as directed 2. COPD exacerbation Goals: Improve disease control, Prevent disease progress Instructions: Follow up as directed, Take meds as directed
--- NOTE | 2016-12-05 10:05 | DIAGNOSTIC IMAGING REPORT ---
PROCEDURE: US ABDOMEN ULTRASOUND-LIMITED INDICATION: elevated lfts TECHNIQUE: Eaton scale and color Doppler sonographic images of the abdomen were obtained. COMPARISON: CT abdomen/pelvis 08/01/2016. FINDINGS: Liver measures 14.4 cm with several small hepatic cysts, largest in the right lobe 1.4 cm. Small ascites. Small postprandial gallbladder with wall thickening (3.5 mm) but negative Taylor's sign. No evidence of gallstones. CBD at the upper limits of normal, 7.6 mm. Normal pancreas. Aorta and IVC are patent. Normal hepatopetal flow. Normal right kidney measures 11.1 cm. Right pleural effusion. IMPRESSION: 1. Small hepatic cysts, otherwise normal liver 2. Small postprandial gallbladder with CBD at the upper limits of normal. Consider HIDA scan. Correlate clinically. 3. Right pleural effusion 4. Results discussed with Dr. Coburn.
--- NOTE | 2016-12-05 11:20 | NUR ---
1100- patient in stable condition. dicharge education completed. pt given written and verbal instruction. stated understanding. pt dc'd to home with daughter.
[2016-12-05] MEDS ORDERED: PERCOCET1 TA1 PO (13:40)
--- NOTE | 2016-12-10 10:37 | ED MED RECONCILIATION SUMMARY ---
Patient: TRAVIS STACY Medication Reconciliation Report [facility] VisitID: [id number] [address] [place] [address] 70y, M Registration Date/Time: 12/02/2016 Weight: 70.3 kg Height/Length: 71 in. BMI: 21.6 ALLERGIES: No Known Drug Allergy The patient's Home Medications are listed below: THE FOLLOWING MEDICATIONS NEED TO BE RECONCILED: Aspirin Childrens Oral BuPROPion HBr Oral 75 MG, TID BusPIRone HCl Oral 15 mg, 3x a day Fish Oil Oral Humira Subcutaneous (40 mg/0.8mL), 10 DAYS KCL 10 meq, daily Multivitamin Oral Omeprazole Oral 20 mg, daily Oxycodone-Acetaminophen Oral Plaquenil Oral 200 mg Pravastatin Sodium Oral 20 mg, daily Vitamin c Oral The source(s) of the original Home Medication information: patient The following Medications were given to the patient in the Emergency Department: Dilaudid [IVP] IVP 2 mg, administered: 12/02/2016 2:37:00 PM IV NS IV Fluids bolus 0, then 1000 mL/hr, administered: 12/02/2016 2:37:00 PM Dilaudid [IVP] IVP 2 mg, administered: 12/02/2016 3:11:00 PM Rocephin [IVPB] IVPB bolus 0, then 2 gm 150 mL/hr, administered: 12/02/2016 4:02:00 PM Zithromax [PO] PO 500 mg, administered: 12/02/2016 4:02:00 PM KCL [IVPB] IVPB bolus 0, then 20 meq 50 mL/hr, administered: 12/02/2016 4:13:00 PM IV NS IV Fluids bolus 0, then 1000 mL/hr, administered: 12/02/2016 4:51:00 PM The following Medications were prescribed to the patient: None.
--- NOTE | 2016-12-10 10:37 | ED MAR SUMMARY ---
..... Medication Administration Record [facility] [address] [place] [address] Patient: TRAVIS STACY Visit ID: [id number] 70y, M Weight: 70.3 kg Height/Length: 71 in BMI: 21.6 ALLERGIES: No Known Drug Allergy Given 14:37 12/02/2016 Martita Humphreys R.N. Medication Administered: DILAUDID [IVP] (HYDROMORPHONE HCL PF), Dose: 2 mg IVP over 1 minute(s), Site: #1 right AC. Medication Ordered: Dilaudid IV 2 mg (HIGH ALERT MEDICATION, NOW). Start 14:37 12/02/2016 Martita Humphreys R.N. Medication Administered: IV NS (SALINE), Dose: IV Fluids over 1 hour(s), Rate: 1000 mL/hr, Dispensed: 1000 mL bag, Site: #1 right AC. Medication Ordered: IV NS : initial bolus 1000 mL (1000 mL/hr), then 200 mL/hr (NOW). Given 15:11 12/02/2016 Martita Humphreys R.N. Medication Administered: DILAUDID [IVP] (HYDROMORPHONE HCL PF), Dose: 2 mg IVP over 1 minute(s), Site: #1 right AC. Medication Ordered: Dilaudid IV 2 mg (HIGH ALERT MEDICATION, NOW). Start 16:02 12/02/2016 Paz Laurent R.N., Stop 17:45 12/02/2016 Martita Humphreys R.N. Medication Administered: ROCEPHIN [IVPB] (CEFTRIAXONE SODIUM), Dose: 2 gm IVPB, Rate: 150 mL/hr, Dispensed: 50 mL bag, Site: #1 right AC. Medication Ordered: Rocephin IV 2 gm/50mL (NOW). Given 16:02 12/02/2016 Paz Laurent R.N. Medication Administered: ZITHROMAX [PO], Dose: 500 mg PO. Medication Ordered: Zithromax PO 500 mg (NOW). Start 16:13 12/02/2016 Paz Laurent R.N. Medication Administered: KCL [IVPB] (POTASSIUM CHLORIDE), Dose: 20 meq IVPB over 1 hour(s), Rate: 50 mL/hr, Dispensed: 100 mL bag, Site: #1 right AC. Medication Ordered: KCl IV 20 meq/100mL (over 1 hr). Start 16:51 12/02/2016 Paz Laurent, R.N., Stop 19:19 12/02/2016 Martita Humphreys, R.N. Medication Administered: IV NS (SALINE), Dose: IV Fluids, Rate: 1000 mL/hr, Dispensed: 1000 mL bag, Site: #1 right AC. Medication Ordered: IV NS : initial bolus 1000 mL (1000 mL/hr), then 1000 mL/hr (NOW).
--- NOTE | 2016-12-10 10:37 | ED DISCHARGE INSTRUCTIONS ---
Patient: TRAVIS STACY General Instructions [facility] VisitID: [id number] [address] [place] [address] 70y, M Registration Date/Time: 12/02/2016 Acute mental status change with confusion. Bacterial pneumonia. Vital signs recorded and reviewed; empiric antibiotics given in the ED. No hypoxemia, respiratory failure or sepsis. (Electronically signed by Roxane Hale MD 12/10/2016 10:37)
--- NOTE | 2016-12-10 10:37 | ED MED RECONCILIATION SUMMARY ---
Patient: TRAVIS STACY Medication Reconciliation Report [facility] VisitID: [id number] [address] [place] [address] 70y, M Registration Date/Time: 12/02/2016 Weight: 70.3 kg Height/Length: 71 in. BMI: 21.6 ALLERGIES: No Known Drug Allergy The patient's Home Medications are listed below: THE FOLLOWING MEDICATIONS NEED TO BE RECONCILED: Aspirin Childrens Oral BuPROPion HBr Oral 75 MG, TID BusPIRone HCl Oral 15 mg, 3x a day Fish Oil Oral Humira Subcutaneous (40 mg/0.8mL), 10 DAYS KCL 10 meq, daily Multivitamin Oral Omeprazole Oral 20 mg, daily Oxycodone-Acetaminophen Oral Plaquenil Oral 200 mg Pravastatin Sodium Oral 20 mg, daily Vitamin c Oral The source(s) of the original Home Medication information: patient The following Medications were given to the patient in the Emergency Department: Dilaudid [IVP] IVP 2 mg, administered: 12/02/2016 2:37:00 PM IV NS IV Fluids bolus 0, then 1000 mL/hr, administered: 12/02/2016 2:37:00 PM Dilaudid [IVP] IVP 2 mg, administered: 12/02/2016 3:11:00 PM Rocephin [IVPB] IVPB bolus 0, then 2 gm 150 mL/hr, administered: 12/02/2016 4:02:00 PM Zithromax [PO] PO 500 mg, administered: 12/02/2016 4:02:00 PM KCL [IVPB] IVPB bolus 0, then 20 meq 50 mL/hr, administered: 12/02/2016 4:13:00 PM IV NS IV Fluids bolus 0, then 1000 mL/hr, administered: 12/02/2016 4:51:00 PM The following Medications were prescribed to the patient: None.
--- NOTE | 2016-12-10 10:37 | ED MAR SUMMARY ---
..... Medication Administration Record Formerly [facility] [address] [place] [address] Patient: TRAVIS STACY Visit ID: [id number] 70y, M Weight: 70.3 kg Height/Length: 71 in BMI: 21.6 ALLERGIES: No Known Drug Allergy Given 14:37 12/02/2016 Martita Humphreys R.N. Medication Administered: DILAUDID [IVP] (HYDROMORPHONE HCL PF), Dose: 2 mg IVP over 1 minute(s), Site: #1 right AC. Medication Ordered: Dilaudid IV 2 mg (HIGH ALERT MEDICATION, NOW). Start 14:37 12/02/2016 Martita Humphreys R.N. Medication Administered: IV NS (SALINE), Dose: IV Fluids over 1 hour(s), Rate: 1000 mL/hr, Dispensed: 1000 mL bag, Site: #1 right AC. Medication Ordered: IV NS : initial bolus 1000 mL (1000 mL/hr), then 200 mL/hr (NOW). Given 15:11 12/02/2016 Martita Humphreys R.N. Medication Administered: DILAUDID [IVP] (HYDROMORPHONE HCL PF), Dose: 2 mg IVP over 1 minute(s), Site: #1 right AC. Medication Ordered: Dilaudid IV 2 mg (HIGH ALERT MEDICATION, NOW). Start 16:02 12/02/2016 Paz Laurent R.N., Stop 17:45 12/02/2016 Martita Humphreys R.N. Medication Administered: ROCEPHIN [IVPB] (CEFTRIAXONE SODIUM), Dose: 2 gm IVPB, Rate: 150 mL/hr, Dispensed: 50 mL bag, Site: #1 right AC. Medication Ordered: Rocephin IV 2 gm/50mL (NOW). Given 16:02 12/02/2016 Paz Laurent R.N. Medication Administered: ZITHROMAX [PO], Dose: 500 mg PO. Medication Ordered: Zithromax PO 500 mg (NOW). Start 16:13 12/02/2016 Paz Laurent R.N. Medication Administered: KCL [IVPB] (POTASSIUM CHLORIDE), Dose: 20 meq IVPB over 1 hour(s), Rate: 50 mL/hr, Dispensed: 100 mL bag, Site: #1 right AC. Medication Ordered: KCl IV 20 meq/100mL (over 1 hr). Start 16:51 12/02/2016 Paz Laurent, R.N., Stop 19:19 12/02/2016 Martita Humphreys, R.N. Medication Administered: IV NS (SALINE), Dose: IV Fluids, Rate: 1000 mL/hr, Dispensed: 1000 mL bag, Site: #1 right AC. Medication Ordered: IV NS : initial bolus 1000 mL (1000 mL/hr), then 1000 mL/hr (NOW).
--- NOTE | 2016-12-10 10:37 | ED DISCHARGE INSTRUCTIONS ---
Patient: TRAVIS STACY General Instructions [facility] VisitID: [id number] [address] [place] [address] 70y, M Registration Date/Time: 12/02/2016 Acute mental status change with confusion. Bacterial pneumonia. Vital signs recorded and reviewed; empiric antibiotics given in the ED. No hypoxemia, respiratory failure or sepsis. (Electronically signed by Roxane Hale MD 12/10/2016 10:37)
== END 2016-12-05 10:00 | disposition home or self-care (01) | DRG 190 ==
LOC: ED SRH 12:29 → TRANS SRH 19:18 → ACUTE2 SRH 19:18
PROVIDERS: ADMIT Emergency Medicine
DX: J44.0 Chronic obstructive pulmonary disease with (acute) lower respiratory infection (principal); J18.9 Pneumonia, unspecified organism; J44.1 Chronic obstructive pulmonary disease with (acute) exacerbation; R09.02 Hypoxemia; E87.6 Hypokalemia; E11.9 Type 2 diabetes mellitus without complications; Z79.4 Long term (current) use of insulin; M06.9 Rheumatoid arthritis, unspecified; I10 Essential (primary) hypertension; F03.90 Unspecified dementia, unspecified severity, without behavioral disturbance, psychotic disturbance, mood disturbance, and anxiety; F17.210 Nicotine dependence, cigarettes, uncomplicated
CPT/HCPCS: 29230; 29247; 29250; 29263; 83751; 85241; 90004; 90065; 90074; 90100; 91295; 92235; 92530; 93004; 94060; 95059; 95061